=== PATIENT | male | born 1950 | race Caucasian/White ===

== ENCOUNTER 2020-10-23 07:55 | Outpatient (REF) | payer MEDICARE, SELFPAY ==
[2020-10-23 11:48] LABS: Alanine Aminotransferase 49 U/L (0-40); Albumin Level 4.2 g/dL (3.5-5.0); Alkaline Phosphatase 51 U/L (39-117); Anion Gap 14 (12-20); Aspartate Amino Transferase 38 U/L (5-37); Bilirubin Total 0.7 mg/dL (0.0-1.0); Blood Urea Nitrogen 24 mg/dL (9-16); Calcium 8.5 mg/dL (8.4-10.2); Carbon Dioxide 29 mmol/L (22-29); Chloride 97 mmol/L (96-108); Cholesterol 170 mg/dL; Estimated Glomerular Filt Rate > 60; Glucose Fasting 93 mg/dL (60-99); HDL Cholesterol 50 mg/dL; LDL Cholesterol Calculated 90 mg/dl; Potassium 3.2 mmol/L (3.3-5.1); Sodium 137 mmol/L (135-145); Total Protein 6.8 g/dL (6.5-8.0); Triglycerides 150 mg/dL
== END 2020-10-23 07:56 | disposition home or self-care (01) ==
LOC: HO.HMGCLDS 07:55
PROVIDERS: PCP Nurse Practitioner Family; Visit Provider Nurse Practitioner Family
DX: I10 Essential (primary) hypertension (principal)
CPT/HCPCS: 36415; 80053; 80061; 84443

== ENCOUNTER 2020-10-26 12:17 | Outpatient (REF) | payer MEDICARE, SELFPAY ==
[2020-10-26 14:25] LABS: Anion Gap 12 (12-20); Carbon Dioxide 32 mmol/L (22-29); Chloride 99 mmol/L (96-108); Potassium 3.5 mmol/L (3.3-5.1); Sodium 139 mmol/L (135-145)
[2020-10-27 03:53] LABS: HBc Num1 0.07 S/CO (0.00-0.79); HBsAGNum1 0.21 S/CO (0.00-0.99); Hepatitis B Core Antibody Nonreactive (Nonreactive); Hepatitis B Surface Antigen Negative (Negative); ~Hepatitis B Surface Antibody NONREACTIVE (Nonreactive)
[2020-10-27 04:00] LABS: ~HepC Num1 0.46 S/CO (0.00-0.79); ~Hepatitis C Antibody Nonreactive (Nonreactive)
[2020-10-28 08:00] LABS: ~Hepatitis A Antibody IgM Nonreactive (Nonreactive)
== END 2020-10-26 12:18 | disposition home or self-care (01) ==
LOC: HO.HMGCLDS 12:17
PROVIDERS: PCP Nurse Practitioner Family; Visit Provider Nurse Practitioner Family
DX: E87.5 Hyperkalemia (principal); R74.8 Abnormal levels of other serum enzymes
CPT/HCPCS: 36415; 80051; 86704; 86706; 86709; 86803; 87340

== ENCOUNTER 2020-11-02 08:18 | Outpatient (REF) | payer MEDICARE, SELFPAY ==
--- NOTE | ~2020-11-02 | US_ITS ---
EXAMINATION: US ABDOMEN COMPLETE CLINICAL INFORMATION: Abnormal levels of other serum enzymes. COMPARISON: None TECHNIQUE: Real-time imaging of the abdominal viscera. FINDINGS: PANCREAS: Normal. ABDOMINAL AORTA: The upper abdominal aorta is not well visualized due to bowel gas. The mid and distal segments are normal in caliber. INFERIOR VENA CAVA: Visualized portions are normal. LIVER: Liver echotexture is increased. The liver is normal in size. The liver contour is normal. No focal hepatic lesion. There is no intrahepatic biliary duct dilatation seen. GALLBLADDER: Normal. The gallbladder is physiologically distended without evidence of stones, sludge, polyps, wall thickening or pericholecystic fluid. COMMON BILE DUCT: Normal in caliber measuring 0.5 cm in diameter. RIGHT KIDNEY: Normal. No hydronephrosis. No renal calculi or focal parenchymal lesions. The kidney measures 12.5 cm in maximum dimension. LEFT KIDNEY: Normal. No hydronephrosis. No renal calculi or focal parenchymal lesions. The kidney measures 12.9 cm in maximum dimension. SPLEEN: Normal. The spleen measures 12.8 cm in maximum dimension. FREE FLUID: None. US/US abdomen complete IMPRESSION: Echogenic liver probably representing fatty infiltration. Limited visualization of the upper abdominal aorta.
== END 2020-11-02 08:19 | disposition home or self-care (01) ==
LOC: HO.US 08:18
PROVIDERS: PCP Internal Medicine; Visit Provider Nurse Practitioner Family
DX: R74.8 Abnormal levels of other serum enzymes (principal)
CPT/HCPCS: 76700

== ENCOUNTER → 2020-12-02 10:25 | Outpatient (REF) | payer MEDICARE, SELFPAY ==
--- NOTE | 2020-12-02 10:28 | CA_ITS ---
Transthoracic Echocardiogram Patient (Last, First, Middle): Neymar Paulino M Gender: Male Date of : 1950 Age: 70 Procedure Date: 12/02/2020 Procedure Type: Transthoracic Echocardiogram Location: OP Height: 187.96 cm Weight: 106.6 kg BSA: 2.33 m2 Heart Rate: bpm BP: 149 / 88 mmHg Research And Development Manager: MIREYA Referring MD: Presley Garcia [facility] Central Supply Technician: Saud Cox MD Symptoms: R01.1 - Cardiac murmur, unspecified Study Quality: Good ECG Rhythm: Sinus Conclusions: - 1. Normal LV systolic function with grade 1 diastolic dysfunction 2. Mildly dilated ascending aorta with mild fibrocalcific aortic valve changes noted 3. Normal cardiac valvular Doppler 4. Normal RV systolic pressure 5. No pericardial effusion Findings Left Ventricle Normal left ventricular size, thickness, and systolic function. The visually estimated ejection fraction is between 60-65%. Spectral Doppler is indicative of an impaired relaxation filling pattern. E/E prime ratio is <8, consistent with normal filling pressures. Evidence suggests grade I (mild) diastolic dysfunction. Right Ventricle Normal right ventricular cavity size and systolic function. Atria Both atria are normal in size. Interatrial shunt cannot be excluded. Aortic Valve There is mild calcification of the aortic valve. There is mild thickening of the aortic valve. There is no aortic valve stenosis. There is no aortic valve regurgitation. Mitral Valve Normal mitral valve structure and function. There is trace mitral valve regurgitation. There is no mitral valve stenosis. Pulmonic Valve The pulmonic valve was not well visualized. There is trace pulmonic valve regurgitation. Tricuspid Valve Likely normal tricuspid valve structure and function. The right ventricular systolic pressure is normal. The right ventricular systolic pressure is 26 mmHg. Normal right atrial pressure. There is no evidence of pulmonary hypertension. Great Vessels The pulmonary artery was not well visualized. There is mild dilatation of the ascending aorta measuring 4.10 cm. Venous The inferior vena cava is normal in size and collapses greater than 50% with inspiration. Pericardium/Pleural There is no evidence of pericardial effusion. Prior Study Comparison No prior study available for comparison. Measurements 2D Linear Measurements IVSd: 0.99 0.6-0.9/0.6-1.0 cm LVIDd: 5.36 3.9-5.3/4.2-5.9 cm LVIDd Index: 2.30 2.4-3.2/2.2-3.1 cm/m2 LVIDs: 3.41 2.0-3.6 cm LVPWd: 1.02 0.7-1.1 cm Ao Root: 3.40 2.1-3.5 cm LA Diam: 3.30 2.7-3.8/3.0-4.0 cm LAIDs Index: 1.42 1.5-2.3 cm/m2 LV Mass: 255.84 67-162/88-224 g LV Mass Index: 109.80 43-95/49-115 g/m2 LVOT Diam: 2.50 3.0+(-)1.3 cm 2D Systolic Function EF 4C: 67.30 >55% EF 2C: 60.90 >55% EF BiP: 64.70 >55% Mitral Valve MV Pk E: 0.53 MV PK A: 0.66 MV Decel Time: 151.00 E/A: 0.80 E'Lateral: 7.18 E'Medial: 4.35 E/E' Med: 12.10 E/E' Lat: 7.30 PHT: 44.00 MVA PHT: 5.00 Decel Bol[place]ar: 3.48 Aortic Valve AoV Pk Jose: 1.14 AoV Pk Grad: 5.00 LVOT LVOT Pk Jose: 0.86 LVOT Mn Jose: 0.59 LVOT VTI: 0.17 LVOT Pk Grad: 3.00 LVOT Mn Grad: 2.00 LVOT Diam: 2.50 LVOT Area: 4.91 Diastolic Function MV Pk E: 0.53 MV Pk A: 0.66 E/A: 0.80 E'Medial: 4.35 E/E' Med: 12.10 E' Laterial: 7.18 E/E' Lat: 7.30 Tricuspid Valve TR Pk Jose: 2.39 TR Pk Grad: 23.00 RA Press: 3.00 RVSP: 26.00 Great Vessels Aorta Ao Root-2D: 3.40 2.0-3.7 cm Ao Asc: 4.10 2.1-3.4 cm Ao Arch: 2.90 Updated in Other Vendor System with Status of Final Saud Cox MD electronically signed on 12/02/2020 6:22:14 PM with status of Final
== END ==
LOC: HO.CARD 10:25
PROVIDERS: PCP Nurse Practitioner Family; Visit Provider Nurse Practitioner Family
DX: R01.1 Cardiac murmur, unspecified (principal)
CPT/HCPCS: 93306

== ENCOUNTER 2021-09-17 09:08 | Outpatient (REF) | payer MEDICARE, SELFPAY ==
[2021-09-17 12:42] LABS: Appearance Urine CLEAR; Color Urine YELLOW; Glucose Urine UA NEG (NEG); Leukocyte Esterase Urine NEG (NEG); Nitrite Urine NEG (NEG); Urine Blood NEG (NEG); Urine Ketones NEG (NEG); Urine Protein NEG (NEG-TRACE)
[2021-09-17 12:45] LABS: Alanine Aminotransferase 54 U/L (0-40); Albumin Level 4.5 g/dL (3.5-5.0); Alkaline Phosphatase 56 U/L (39-117); Anion Gap 13 (12-20); Aspartate Amino Transferase 42 U/L (5-37); Bilirubin Total 0.7 mg/dL (0.0-1.0); Blood Urea Nitrogen 21 mg/dL (9-16); Calcium 9.7 mg/dL (8.4-10.2); Carbon Dioxide 29 mmol/L (22-29); Chloride 102 mmol/L (96-108); Cholesterol 198 mg/dL; Estimated Glomerular Filt Rate > 60; Glucose Fasting 101 mg/dL (60-99); HDL Cholesterol 59 mg/dL; LDL Cholesterol Calculated 114 mg/dl; Potassium 4.5 mmol/L (3.3-5.1); Sodium 139 mmol/L (135-145); Total Protein 6.9 g/dL (6.5-8.0); Triglycerides 126 mg/dL
== END 2021-09-17 09:09 | disposition home or self-care (01) ==
LOC: HO.HMGCLDS 09:08
PROVIDERS: PCP Nurse Practitioner Family; Visit Provider Nurse Practitioner Family
DX: I10 Essential (primary) hypertension (principal)
CPT/HCPCS: 36415; 80053; 80061; 81003; 84443

== ENCOUNTER 2021-11-29 07:20 | Outpatient (REF) | payer MEDICARE, SELFPAY ==
[2021-11-29 12:30] LABS: Alanine Aminotransferase 50 U/L (0-40); Albumin Level 4.3 g/dL (3.5-5.0); Alkaline Phosphatase 68 U/L (39-117); Anion Gap 15 (12-20); Aspartate Amino Transferase 35 U/L (5-37); Bilirubin Total 0.2 mg/dL (0.0-1.0); Blood Urea Nitrogen 13 mg/dL (9-16); Calcium 9.6 mg/dL (8.4-10.2); Carbon Dioxide 28 mmol/L (22-29); Chloride 101 mmol/L (96-108); Cholesterol 170 mg/dL; Estimated Glomerular Filt Rate > 60; Glucose Fasting 104 mg/dL (60-99); HDL Cholesterol 57 mg/dL; LDL Cholesterol Calculated 88 mg/dl; Potassium 4.3 mmol/L (3.3-5.1); Sodium 140 mmol/L (135-145); Total Protein 7.2 g/dL (6.5-8.0); Triglycerides 125 mg/dL
== END 2021-11-29 07:21 | disposition home or self-care (01) ==
LOC: HO.HMGCLDS 07:20
PROVIDERS: Visit Provider Nurse Practitioner Family
DX: R74.8 Abnormal levels of other serum enzymes (principal)
CPT/HCPCS: 36415; 80053; 80061

== ENCOUNTER 2022-06-27 07:18 | Outpatient (REF) | payer MEDICARE, SELFPAY ==
[2022-06-27 11:24] LABS: Appearance Urine Clear; Color Urine Yellow; Glucose Urine UA Negative (Negative); Leukocyte Esterase Urine Negative (Negative); Nitrite Urine Negative (Negative); PH 5.5 (5.0-9.0); Urine Blood Negative (Negative); Urine Ketones Negative (Negative); Urine Protein Negative (Neg-Trace)
[2022-06-27 11:48] LABS: Alanine Aminotransferase 48 U/L (0-40); Albumin Level 4.4 g/dL (3.5-5.0); Alkaline Phosphatase 54 U/L (39-117); Anion Gap 16 (12-20); Aspartate Amino Transferase 41 U/L (5-37); Bilirubin Total 0.5 mg/dL (0.0-1.0); Blood Urea Nitrogen 20 mg/dL (9-16); Calcium 9.1 mg/dL (8.4-10.2); Carbon Dioxide 26 mmol/L (22-29); Chloride 105 mmol/L (96-108); Cholesterol 139 mg/dL; Estimated Glomerular Filt Rate > 60; Glucose Fasting 99 mg/dL (60-99); HDL Cholesterol 63 mg/dL; LDL Cholesterol Calculated 55 mg/dl; Potassium 3.7 mmol/L (3.3-5.1); Sodium 143 mmol/L (135-145); Total Protein 6.8 g/dL (6.5-8.0); Triglycerides 109 mg/dL
[2022-06-27 11:57] LABS: TSH reflex Free T4 3.22 uIU/mL (0.32-4.0)
== END 2022-06-27 07:19 | disposition home or self-care (01) ==
LOC: HO.HMGCLDS 07:18
PROVIDERS: PCP Nurse Practitioner Family; Visit Provider Nurse Practitioner Family
DX: I10 Essential (primary) hypertension (principal)
CPT/HCPCS: 36415; 80053; 80061; 81003; 84443

== ENCOUNTER 2023-01-04 07:16 | Outpatient (REF) | payer MEDICARE, SELFPAY ==
[2023-01-04 11:27] LABS: MANUAL DIFF FLAG NO
[2023-01-04 11:33] LABS: Appearance Urine Clear; Color Urine Yellow; Glucose Urine UA Negative (Negative); Leukocyte Esterase Urine Negative (Negative); Nitrite Urine Negative (Negative); PH 6.5 (5.0-9.0); Urine Blood Negative (Negative); Urine Ketones Negative (Negative); Urine Protein Negative (Neg-Trace)
[2023-01-04 11:37] LABS: Basophils Percent Auto 0.6 % (0-2); Eosinophils Absolute Auto 0.1 X10*3/uL (0.0-0.4); Eosinophils Percent Auto 2.3 % (0-4); Hematocrit 41.3 % (42.0-52.0); Hemoglobin 14.1 g/dl (14.0-18.0); Lymphocytes Absolute Auto 1.3 X10*3/uL (1.2-4.9); Lymphocytes Percent Auto 26.7 % (20-40); Mean Corpuscular HGB Conc 34.1 g/dl (31.0-36.0); Mean Corpuscular Hemoglobin 30.7 pg (27.0-33.0); Mean Corpuscular Volume 89.8 fL (80.0-98.0); Mean Platelet Volume 10.9 fL (9.4-12.4); Monocytes Absolute Auto 0.4 X10*3/uL (0.1-1.2); Monocytes Percent Auto 7.9 % (2-11); Neutrophils Percent Auto 62.5 % (45-73); Platelet Count 149 X10*3/uL (160-400); Red Cell Distribution Width 12.7 % (11.0-16.0); White Blood Count 4.8 X10*3/uL (4.8-10.8)
[2023-01-04 12:12] LABS: Alanine Aminotransferase 43 U/L (0-40); Albumin Level 4.5 g/dL (3.5-5.0); Alkaline Phosphatase 63 U/L (39-117); Anion Gap 12 (12-20); Aspartate Amino Transferase 36 U/L (5-37); Bilirubin Total 0.6 mg/dL (0.0-1.0); Blood Urea Nitrogen 20 mg/dL (9-16); Calcium 9.3 mg/dL (8.4-10.2); Carbon Dioxide 29 mmol/L (22-29); Chloride 103 mmol/L (96-108); Cholesterol 155 mg/dL; Estimated Glomerular Filt Rate > 60; Glucose Fasting 98 mg/dL (60-99); HDL Cholesterol 64 mg/dL; LDL Cholesterol Calculated 72 mg/dl; Potassium 3.6 mmol/L (3.3-5.1); Sodium 140 mmol/L (135-145); Total Protein 6.8 g/dL (6.5-8.0); Triglycerides 98 mg/dL
== END 2023-01-04 07:17 | disposition home or self-care (01) ==
LOC: HO.HMGCLDS 07:16
PROVIDERS: PCP Nurse Practitioner Family; Visit Provider Nurse Practitioner Family
DX: I10 Essential (primary) hypertension (principal); R74.8 Abnormal levels of other serum enzymes
CPT/HCPCS: 36415; 80053; 80061; 81003; 84443; 85025

== ENCOUNTER → 2023-01-09 13:57 | Outpatient (REF) | payer MEDICARE, SELFPAY ==
--- NOTE | 2023-01-09 14:02 | CA_ITS ---
Transthoracic Echocardiogram Patient (Last, First, Middle): Neymar Paulino M Gender: Male Date of : 1950 Age: 72 Procedure Date: 01/09/2023 Procedure Type: Transthoracic Echocardiogram Location: OP Height: 187.96 cm Weight: 104.33 kg BSA: 2.31 m2 Heart Rate: bpm BP: 134 / 82 mmHg Circuit Designer: Referring MD: Presley Garcia [facility] Symptoms: I77.810 - Thoracic aortic ectasia Study Quality: Fair ECG Rhythm: Sinus Conclusions: - The left ventricular systolic function is normal. The calculated ejection fraction is 62% by biplane method. - No obvious valvular pathology seen on this study. - There is mild dilatation of the ascending aorta measuring 4.10 cm. Findings Left Ventricle Normal left ventricular cavity size. There is mildly increased left ventricular wall thickness. The left ventricular systolic function is normal. The calculated ejection fraction is 62% by biplane method. There is no evidence of regional wall motion abnormalities. Diastolic function is normal for age. LV peak GLS -17.5%. Right Ventricle Normal right ventricular cavity size and systolic function. Atria Both atria are normal in size. Aortic Valve There is a normal trileaflet aortic valve. There is no aortic valve stenosis. There is no aortic valve regurgitation. Mitral Valve The mitral valve appears normal. There is no mitral valve regurgitation. There is no mitral valve stenosis. Pulmonic Valve The pulmonic valve is likely normal. Tricuspid Valve Normal tricuspid valve structure. There is trace tricuspid valve regurgitation. There is no evidence of pulmonary hypertension. Great Vessels The aortic arch is normal in size. There is mild dilatation of the ascending aorta measuring 4.10 cm. Venous The inferior vena cava is normal in size and collapses less than 50% with inspiration. Pericardium/Pleural There is no evidence of pericardial effusion. Prior Study Comparison No significant change compared to prior study dated: 12/02/2020. Recommendations, Care & Conclusions No obvious valvular pathology seen on this study. Measurements 2D Linear Measurements IVSd: 1.21 0.6-0.9/0.6-1.0 cm LVIDd: 4.01 3.9-5.3/4.2-5.9 cm LVIDd Index: 1.74 2.4-3.2/2.2-3.1 cm/m2 LVIDs: 2.76 2.0-3.6 cm LVPWd: 1.28 0.7-1.1 cm Ao Root: 3.90 2.1-3.5 cm LA Diam: 3.80 2.7-3.8/3.0-4.0 cm LAIDs Index: 1.65 1.5-2.3 cm/m2 LV Mass: 218.55 67-162/88-224 g LV Mass Index: 94.61 43-95/49-115 g/m2 LVOT Diam: 2.50 3.0+(-)1.3 cm 2D Systolic Function EF 4C: 64.10 >55% EF 2C: 58.20 >55% EF BiP: 62.00 >55% Mitral Valve MV Pk E: 0.62 MV PK A: 0.96 MV Decel Time: 271.00 E/A: 0.60 E'Lateral: 5.77 E'Medial: 5.33 E/E' Med: 11.60 E/E' Lat: 10.70 PHT: 79.00 MVA PHT: 2.78 Decel Stanton: 2.28 Aortic Valve AoV Pk Jose: 1.46 AoV Mn Ojse: 1.02 AoV VTI: 0.26 AoV Pk Grad: 9.00 Aov Mn Grad: 5.00 SHUBHAM Cont.VTI: 3.78 LVOT LVOT Pk Jose: 0.96 LVOT Mn Jose: 0.67 LVOT VTI: 0.20 LVOT Pk Grad: 4.00 LVOT Mn Grad: 2.00 LVOT Diam: 2.50 LVOT Area: 4.91 Diastolic Function MV Pk E: 0.62 MV Pk A: 0.96 E/A: 0.60 E'Medial: 5.33 E/E' Med: 11.60 E' Laterial: 5.77 E/E' Lat: 10.70 Right Ventricle TAPSE (mm): 23.00 TVS' Jose: 10.00 Tricuspid Valve RA Press: 3.00 Great Vessels Aorta Ao Root-2D: 3.90 2.0-3.7 cm Ao Asc: 4.10 2.1-3.4 cm Ao Arch: 3.10 Pulmonary Valve PV Pk Jose: 0.81 Peak PV Grad: 3.00 Updated in Other Vendor System with Status of Final Shahid Rasmussen MD electronically signed on 01/10/2023 9:40:12 AM with status of Final
== END ==
LOC: HO.CARD 13:57
PROVIDERS: Visit Provider Nurse Practitioner Family
DX: I77.810 Thoracic aortic ectasia (principal)
CPT/HCPCS: 93306; 93356

== ENCOUNTER 2023-10-16 14:17 | Outpatient (AMB) | payer MEDICARE, SELFPAY ==
[2023-10-16 14:40] VITALS: BP 148/86; PULSE 76; O2SAT 100; BMI 33.3
--- NOTE | 2023-10-16 14:40 | A.OFFPC_ITS ---
Vital Signs 10/16/23 14:40 Height 6 ft Weight 245 lb 8 oz BMI 33.3 BP 148/86 H Blood Pressure Location Rt brachial Position Sitting Pulse 76 Pulse Source Pulse Oximeter Pulse Oximetry (%) 100 Oxygen Delivery Method Room Air Intake Visit Reasons: 6 Month follow up Intake Note: 6 month follow for HTN Allergies No Known Allergies Allergy (Verified 10/16/23 14:43) Medication List - Last Reconciled 10/16/23 by DAMI Hurt amlodipine 10 mg PO DAILY 90 days atorvastatin 10 mg PO BEDTIME 90 days hydrochlorothiazide 25 mg PO QAM metoprolol succinate ER 12.5 mg (1/2 x 25 mg) PO DAILY 30 days multivitamin 1 tab PO DAILY Tobacco use date assessed: 10/16/23 Fall risk assessment: No Falls in past year Last assessed Fall Risk: 10/16/23 Dental Screening Dental Screen Date: 10/16/23 Did you have a dental visit in the last 12 months?: No Did you have a dental problem in the last 6 months where you did not have access to dental care?: No Was dental information given to patient?: No HPI 6 Month follow up HPI Details HTN: Blood pressure is managed with amlodipine 10mg and hydrochlorothiazide 25mg. Pt reports that his blood pressure at home has been in the 140s/80s. Will add metoprolol 12.5mg. Denies chest pain, shortness of br eath, headache, dizziness, and blurred vision. Pt is fair skinned with multipe freckles. Will refer to derm. [facility] Medical History (Updated 10/16/23 @ 14:53 by DAMI Hurt) Rectus diastasis Ascending aorta dilatation Surgical History History of repair of rotator cuff Quadriceps muscle rupture Family History Father No problems noted. 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 1. Little interest or pleasure in doing things: not at all 2. Feeling down, depressed, or hopeless: not at all 3. Trouble falling or staying asleep, or sleeping too much: not at all 4. Feeling tired or having little energy: not at all 5. Poor appetite or overeating: not at all 6. Feeling bad about yourself - or that you are a failure or have let yourself or your family down: not at all 7. Trouble concentrating on things, such as reading the newspaper or watching television: not at all 8. Moving or speaking so slowly that other people could have noticed. Or the opposite - being so fidgety or restless that you have been moving around a lot more than usual: not at all 9. Thoughts that you would be better off or of hurting yourself in some way: not at all Total score: 0 Source: Developed by Drs. Mulugeta Jacobo, Erika Hutson, Venkata Savage and colleagues, with an educational tony from [employer]. Thrive Questionnaire Date Thrive assessed: 10/16/23 I am a: Patient What is your living situation today?: I have a steady place to live Within the past 12 months, did the food you bought not last and you didn't have the money to get more?: Never true Within the past 12 months, did you worry whether your food would run out before you got money to buy more?: Never true Do you have trouble paying for medicines?: No Do you have trouble getting transportation to medical appointments?: No Do you have trouble paying your heating and electricity bill?: No Do you have trouble taking care of your child, family member or friend?: No Do you have trouble with day-to-day activities such as bathing, preparing meals, shopping, managing finances, etc.?: No Are you currently unemployed and looking for a job?: No Are you interested in more education?: No THRIVE Score: 0 AUDIT C Alcohol Use Questionnaire (AUDIT-C) 1. How often do you have a drink containing alcohol?: 2-4 times a month 2. How many drinks containing alcohol do you have on a typical day when you are drinking?: 1 or 2 3. How often do you have six or more drinks on one occasion?: Never Total Score: 2 SANJUANA-7 AMB Questionnaire SANJUANA-7 Date SANJUANA - 7 assessed: 10/16/23 Feeling nervous, anxious, or on edge: 0 = Not at all Not being able to stop or control worryin = Not at all Worrying too much about different things: 0 = Not at all Trouble relaxin = Not at all Being so restless that it is hard to sit still: 0 = Not at all Becoming easily annoyed or irritable: 0 = Not at all Feeling afraid as if something awful might happen: 0 = Not at all Total SANJUANA-7 score (0-4 normal; 5-9 mild; 10-14 moderate; 15-21 severe): 0 Source: Developed by Drs. Mulugeta Jacobo, Erika Hutson, Venkata Savage and colleagues, with an educational tony from [employer]. Review of Systems Const Reports as per HPI Physical exam (Primary Care) Vital Signs: Last Vital Signs Pulse 76 10/16/23 14:40 BP 148/86 H 10/16/23 14:40 Pulse Ox 100 10/16/23 14:40 Oxygen Delivery Method Room Air 10/16/23 14:40 BMI result Body Mass Index 33.3 Tobacco/Smoking Status: Tobacco use Status Tobacco use date assessed 10/16/23 10/16/23 14:46 Patient Tobacco Use Status Never used Tobacco 10/16/23 14:46 e-Cigarette/Vaping Use Never Used 10/16/23 14:46 PHQ-9: PHQ-9 Score PHQ-9: Total score 0 10/16/23 14:50 Thrive Assessment: Date of Thrive Assessment Date Thrive assessed 10/16/23 10/16/23 14:48 Const General: cooperative Nutritional Appearance: obese Orientation/consciousness: patient oriented x3 Resp Effort & Inspection: normal respiratory effort Auscultation: clear to auscultation bilaterally Cardio Rate: regular rate Rhythm: regular rhythm Heart sounds: S1 normal heart sound present, S2 normal heart sound present and Murmur heart sound present (faint) systolic Neuro General: patient oriented x3 Extrem Right lower extremity: no edema Left lower extremity: no edema Psych Appearance: grossly normal Mental Status: mental status grossly normal Speech and movement: Normal speech and movement present Affect: normal affect Attitude: cooperative Thought process: Normal thought process present Thought content: Normal thought content present Insight: Good insight present (Psych) Judgement: Good judgement present (Psych) Assessment and Plan Assessment & Plan (1) Skin lesions: Code(s): L98.9 - Disorder of the skin and subcutaneous tissue, unspecified Plan: Referred to derm (2) HTN (hypertension): Code(s): I10 - Essential (primary) hypertension Plan: Starting metoprolol 12.5mg Plan The patient agreed to the use of a medical billing and coding instructor for this encounter. Scribed for DAMI Jensen by Layne Pereira medical billing and coding instructor, on 10/16/2023 at 14:50 EST. Orders: Orders Comprehensive [place]. Panel Fast Today I10 - Essential (primary) hypertension TSH reflex Free T4 Today I10 - Essential (primary) hypertension UA CC w/rflx Micro + Cult Today I10 - Essential (primary) hypertension Lipid Panel Today I10 - Essential (primary) hypertension Complete Blood Count Auto Diff Today I10 - Essential (primary) hypertension Referrals Dermatology Referral L98.9 - Disorder of the skin and subcutaneous tissue, unspecified Medications: New metoprolol succinate ER 12.5 mg (1/2 x 25 mg) PO DAILY 30 days 15 tabs 3RF Coding Level of Care Code Est Pt Level 3 (56755) Diagnoses Skin lesions L98.9 HTN (hypertension) I10
== END 2023-10-16 15:03 | disposition home or self-care (01) ==
LOC: HO.HMGC 14:17
PROVIDERS: PCP Nurse Practitioner Family; Visit Provider Nurse Practitioner Family
DX: I10 Essential (primary) hypertension (principal); L98.9 Disorder of the skin and subcutaneous tissue, unspecified
CPT/HCPCS: 99213

== ENCOUNTER 2024-01-06 08:00 | Outpatient (REF) | payer MEDICARE, SELFPAY ==
[2024-01-06 11:57] LABS: MANUAL DIFF FLAG NO
[2024-01-06 12:01] LABS: Basophils Percent Auto 0.5 % (0-2); Eosinophils Absolute Auto 0.2 X10*3/uL (0.0-0.4); Eosinophils Percent Auto 2.7 % (0-4); Hematocrit 47.4 % (42.0-52.0); Hemoglobin 16.3 g/dl (14.0-18.0); Imm Gran Abs Auto 0.01 X10*3/uL (0.00-0.03); Imm Gran Pct Auto 0.2 % (0.0-0.4); Lymphocytes Absolute Auto 1.2 X10*3/uL (1.2-4.9); Lymphocytes Percent Auto 18.3 % (20-40); Mean Corpuscular HGB Conc 34.4 g/dl (31.0-36.0); Mean Corpuscular Hemoglobin 30.2 pg (27.0-33.0); Mean Corpuscular Volume 87.8 fL (80.0-98.0); Mean Platelet Volume 10.4 fL (9.4-12.4); Monocytes Absolute Auto 0.6 X10*3/uL (0.1-1.2); Monocytes Percent Auto 9.7 % (2-11); Neutrophils Absolute Auto 4.3 x10*3/uL (2.0-8.3); Neutrophils Percent Auto 68.6 % (45-73); Platelet Count 163 X10*3/uL (160-400); Red Cell Distribution Width 13.2 % (11.0-16.0); White Blood Count 6.3 X10*3/uL (4.8-10.8)
[2024-01-06 12:11] LABS: Appearance Urine Clear; Color Urine Yellow; Glucose Urine UA Negative (Negative); Leukocyte Esterase Urine Trace (Negative); Nitrite Urine Negative (Negative); UMIC TRIGGER UACC YES; Urine Blood Negative (Negative); Urine Ketones Trace mg/dL (Negative); Urine Protein Negative (Neg-Trace)
[2024-01-06 12:18] LABS: Bacteria Urine None Seen (None Seen); Hyaline Casts Urine 0-2 /LPF (0-2); RBC Urine 0-2 /HPF (0-2); Squamous Epithelial Cell Urine 0-2 /HPF (0-2); WBC Urine 0-5 /HPF (0-5)
[2024-01-06 12:31] LABS: Alanine Aminotransferase 46 U/L (0-40); Albumin Level 4.2 g/dL (3.5-5.0); Alkaline Phosphatase 55 U/L (39-117); Anion Gap 13 (12-20); Aspartate Amino Transferase 39 U/L (5-37); Bilirubin Total 0.5 mg/dL (0.0-1.0); Blood Urea Nitrogen 13 mg/dL (9-16); Calcium 9.1 mg/dL (8.4-10.2); Carbon Dioxide 27 mmol/L (22-29); Chloride 104 mmol/L (96-108); Cholesterol 119 mg/dL (<200); Estimated Glomerular Filt Rate > 60; Glucose Fasting 110 mg/dL (60-99); HDL Cholesterol 49 mg/dL (>40); LDL Cholesterol Calculated 55 mg/dL (<100); Potassium 3.5 mmol/L (3.3-5.1); Sodium 140 mmol/L (135-145); Total Protein 6.9 g/dL (6.5-8.0); Triglycerides 77 mg/dL (<150)
[2024-01-06 12:37] LABS: TSH reflex Free T4 2.87 uIU/mL (0.32-4.0)
== END 2024-01-06 08:01 | disposition home or self-care (01) ==
LOC: HO.HMGCLDS 08:00
PROVIDERS: PCP Nurse Practitioner Family; Visit Provider Nurse Practitioner Family
DX: I10 Essential (primary) hypertension (principal)
CPT/HCPCS: 36415; 80053; 80061; 81001; 84443; 85025

== ENCOUNTER 2024-02-07 13:53 | Outpatient (AMB) | payer MEDICARE, SELFPAY ==
[2024-02-07 13:55] VITALS: BP 162/82; PULSE 89; O2SAT 96
--- NOTE | 2024-02-07 13:55 | AM.OFFWIN_ITS ---
Intake Vital Signs 3 02/07/24 13:55 Height 6 ft BP 162/82 H Blood Pressure Location Rt brachial Position Sitting Pulse 89 Pulse Source Pulse Oximeter Pulse Oximetry (%) 96 Intake Visit Reasons: EP popped left shoulder , cant move Intake Note: pt is here for dislocation shoulder, unable to move Patient Tobacco Use Status: Never used Tobacco Allergies No Known Allergies Allergy (Verified 02/07/24 13:57) Do you need a note to return to daycare/school/sports/work: No HPI EP popped left shoulder , cant move 2 HPI0 Details This is a 73 year old male patient who presents today with left shoulder/upper arm pain. He states that about two weeks ago, he felt a slight strain in that area while he was working out. He rested it since then, however today he was doing some work in his yard and reach across his chest with his left arm and felt a small popping sensation. He subsequently had pain radiating down left deltoid and bicep, and weakness in that arm. He is in constant pain, and cannot move his left arm without lifting it with his right hand. He has some relief when left arm is lifted completely above his head, however he must hold it there. [facility] Medical History Hypogonadism in male Rectus diastasis Ascending aorta dilatation Surgical History History of repair of rotator cuff Quadriceps muscle rupture Family History Father No problems noted. 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 Cognitive needs: No Hearing needs: No Vision needs: No Review of Systems Const All systems reviewed & are unremarkable except as noted in HPI and below Physical Exam Vital Signs: Last Vital Signs Pulse 89 02/07/24 13:55 BP 162/82 H 02/07/24 13:55 Pulse Ox 96 02/07/24 13:55 Const General: cooperative and acute distress (left arm/shoulder pain) moderate HEENT Head: Yes normal to inspection and Yes normocephalic Neck Neck: Yes full ROM and Yes no lymphadenopathy Resp Effort & Inspection: normal respiratory effort Back/Spine/Pelvis Cervical Spine: normal cervical lordosis and cervical ROM normal Skin General skin exam: no rashes or lesions noted Neuro General: deep tendon reflexes 2+ bilaterally Cognition (Neuro): normal cognition Gait exam (Neuro): Normal gait present Extrem Left upper extremity: shoulder/upper arm Details: inspection abnormal, tenderness (no AC joint tenderness. Some mild deltoid tenderness distally) and abnormal ROM Details: held in an abnormal fashion Details: in ADduction and pain with active ROM Details: in ABduction, in extension and in flexion Shoulder/upper arm images: 2 1. pain Psych Appearance: grossly normal Mental Status: mental status grossly normal Speech and movement: Normal speech and movement present Assessment & Plan Assessment & Plan (1) Left shoulder pain: Code(s): M25.512 - Pain in left shoulder Qualifiers: Chronicity: acute Qualified Code(s): M25.512 - Pain in left shoulder Plan: XR obtained in the office today indicates OA however no fx or dislocation. Possible RTC pathology vs adhesive capsulitis. Patient needs ortho f/u. He has an appt. at [facility] on 02/25. He is going to call to see if he can get a sooner appt. Will request images be sent to [facility]. Patient fitted for shoulder immobilizer today in the office and felt some relief from this. He is in significant pain even at rest without movement. We discussed use of NSAIDs and Tylenol, and I am going to prescribe him a short course of pain medication to take for breakthrough pain when more conservative measures are ineffective. We reviewed risks, indications, use, possible side effects of this medication. Will also prescribe muscle relaxer for use at . Reviewed use, possible s/e of this. Advised ice application and gentle ROM as tolerated. (2) Weakness of left shoulder: Code(s): R29.898 - Other symptoms and signs involving the musculoskeletal system Plan: As above. Orders: Orders 2 XR shoulder LT min 2V 02/07/24 M25.512 - Pain in left shoulder Medications: New 2 cyclobenzaprine 10 mg PO BEDTIME PRN 7 tabs 0RF muscle spasm 7 days M25.512 - Pain in left shoulder tramadol Take up to twice a day as needed for severe pain. Do not take with Cyclobenzaprine. 50 mg PO BID PRN 14 tabs 0RF pain 7 days M25.512 - Pain in left shoulder Coding Level of Care Code Est Pt Level 4 (42931) Diagnoses Acute pain of left shoulder M25.512 Chronicity: acute Weakness of left shoulder R29.898
--- OUTSIDE RECORDS SUMMARY | 2024-02-07 18:14 | XMS_ITS | Patient Health Record ---
Author Organization 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 Name Role Phone Presley Kelly Primary Care Provider Unav ailable Ifrah Sifuentes Unavailable [phone] ALLERGIES No Known Allergies REASON FOR REFERRAL No Information MEDICATIONS Medication SIG (Take, Route, Frequency, Duration) Notes Start Date End Date Status amLODIPine Besylate 10 MG 1 tablet Active hydroCHLOROthiazide 12mg Active SOCIAL HISTORY Tobacco Use: Social History Observation Description Date Details (start date - stop date) Never Smoker NA - NA Sex Assigned At : Social History Observation Description Sex Assigned At Unknown Tobacco Use/Smoking Question Answer Notes Are you a: nonsmoker Alcohol Screen Question Answer Notes Did you have a drink containing alcohol in the p ast year? Yes Points 0 Interpretation Negative Tobacco use other than smoking: Question Answer Notes Are you an other tobacco user? No VITAL SIGNS Height 6'2 in 07/05/2023 Weight 225 lbs 07/05/2023 BMI 28.89 kg/m2 07/05/2023 Encounters Encounter Location Date Provider Diagnosis [facility] [place] [address] [place] [address] 06/21/2023 Ifrah Sifuentes [facility] [address] [place] [address] 07/05/2023 Ifrah Sifuentes Ingrown nail L60.0 ASSESSMENTS Encounter Date Diagnosis Assessment Notes Treatment Notes Treatment Clinical Notes 07/05/2023 Ingrown nail (ICD-10 - L60.0) PLAN OF TREATMENT No Information Insurance Providers Payer Name Payer Address Payer Phone Subscriber Number Group Number Insured Name Patient Relationship to Insured Coverage Start Date Coverage End Date [employer] [address] [place] [address] [id number] Neymar Paulino Self - patient is the insured MEDICAL (GENERAL) HISTORY Medical History History ICD Code High blood pressure Surgical History Surgery Date(Month/Year) rotator cuff tear repair 2007 [place] [id number]
== END 2024-02-07 15:09 | disposition home or self-care (01) ==
PROVIDERS: PCP Nurse Practitioner Family; Visit Provider Nurse Practitioner Family
DX: M25.512 Pain in left shoulder (principal); R29.898 Other symptoms and signs involving the musculoskeletal system
CPT/HCPCS: 99214

== ENCOUNTER 2024-02-07 14:06 | Outpatient (REF) | payer MEDICARE, SELFPAY ==
--- NOTE | ~2024-02-07 | XR_ITS ---
EXAMINATION: XR SHOULDER, LEFT CLINICAL INFORMATION: Left shoulder pain COMPARISON: Left shoulder x-ray on 12/12/2014 TECHNIQUE: AP external rotation, internal rotation, scapular Y views of the left shoulder. FINDINGS: BONES: Bony structures are intact. Ring osteophyte formation is seen in medial left humeral head. There is no focal bone destruction or periosteal reaction seen. JOINTS: Alignment of joints is normal. SOFT TISSUE: Soft tissue is normal. No radiopaque foreign body or abnormal air collection is seen. XR/XR shoulder LT min 2V IMPRESSION: 1. Persistent left glenohumeral joint osteoarthritis. 2. No fracture or dislocation or signs of osteomyelitis are found.
== END 2024-02-07 14:07 | disposition home or self-care (01) ==
LOC: HO.HMGCX 14:06
PROVIDERS: PCP Nurse Practitioner Family; Visit Provider Nurse Practitioner Family
DX: M25.512 Pain in left shoulder (principal)
CPT/HCPCS: 73030

== ENCOUNTER 2024-03-25 09:58 | Outpatient (AMB) | payer MEDICARE, SELFPAY ==
[2024-03-25 10:02] VITALS: BP 132/78; PULSE 76; O2SAT 94; BMI 32.6
--- NOTE | 2024-03-25 10:02 | A.OFFPC_ITS ---
Vital Signs 03/25/24 10:02 Height 6 ft Weight 240 lb 6 oz BMI 32.6 BP 132/78 Blood Pressure Location Lt brachial Position Sitting Pulse 76 Pulse Source Pulse Oximeter Pulse Oximetry (%) 94 Oxygen Delivery Method Room Air Intake Visit Reasons: 6 Month follow up Intake Note: Pt is here today for his 6 month follow up. Allergies No Known Allergies Allergy (Verified 03/25/24 12:42) Medication List - Last Reconciled 03/25/24 by DAMI Hurt amlodipine 10 mg PO DAILY 90 days atorvastatin 10 mg PO BEDTIME 90 days hydrochlorothiazide 25 mg PO QAM metoprolol succinate ER 12.5 mg (1/2 x 25 mg) PO DAILY multivitamin 1 tab PO DAILY Tobacco use date assessed: 03/25/24 Fall risk assessment: No Falls in past year Last assessed Fall Risk: 03/25/24 Dental Screening Dental Screen Date: 03/25/24 Did you have a dental visit in the last 12 months?: No Did you have a dental problem in the last 6 months where you did not have access to dental care?: No Was dental information given to patient?: No HPI 6 Month follow up HPI Details HTN: Blood pressure is stable, managed with amlodipine 10mg, hydrochlorothiazide 25mg, and metoprolol 12.5mg. Pt checks his blood pressure intermittently at home. Denies chest pain, shortness of breath, headache, dizziness, and blurred vision. [facility] Medical History Hypogonadism in male Rectus diastasis Ascending aorta dilatation Surgical History History of repair of rotator cuff Quadriceps muscle rupture Family History Father No problems noted. 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 How often do you have a drink containing alcohol?: 2-4 times a month 2. How many drinks containing alcohol do you have on a typical day when you are drinking?: 1 or 2 3. How often do you have six or more drinks on one occasion?: Never Total Score: 2 Score Reviewed/Action Taken: Yes SANJUANA-7 AMB Questionnaire SANJUANA-7 Date SANJUANA - 7 assessed: 10/16/23 Source: Developed by Drs. uMlugeta Jacobo, Erika Hutson, Venkata Savage and colleagues, with an educational tony from [employer]. Review of Systems Const Reports as per HPI Physical exam (Primary Care) Vital Signs: Last Vital Signs Pulse 76 03/25/24 10:02 BP 132/78 03/25/24 10:02 Pulse Ox 94 03/25/24 10:02 Oxygen Delivery Method Room Air 03/25/24 10:02 BMI result Body Mass Index 32.6 Tobacco/Smoking Status: Tobacco use Status Tobacco use date assessed 03/25/24 03/25/24 10:05 Patient Tobacco Use Status Never used Tobacco 03/25/24 10:05 e-Cigarette/Vaping Use Never Used 03/25/24 10:05 Thrive Assessment: Date of Thrive Assessment Date Thrive assessed 10/16/23 03/25/24 10:05 Const General: cooperative Orientation/consciousness: patient oriented x3 Resp Effort & Inspection: normal respiratory effort Auscultation: clear to auscultation bilaterally Cardio Rate: regular rate Rhythm: regular rhythm Heart sounds: S1 normal heart sound present and S2 normal heart sound present Neuro General: patient oriented x3 Extrem Right lower extremity: no edema Left lower extremity: no edema Psych Appearance: grossly normal Mental Status: mental status grossly normal Speech and movement: Normal speech and movement present Affect: normal affect Attitude: cooperative Thought process: Normal thought process present Thought content: Normal thought content present Insight: Good insight present (Psych) Judgement: Good judgement present (Psych) Assessment and Plan Assessment & Plan (1) HTN (hypertension): Code(s): I10 - Essential (primary) hypertension Plan: Stable, labs ordered Plan The patient agreed to the use of a medical detail representative for this encounter. Scribed for Presley Garcia, SYSTEMS DEVELOPER-BC by Layne Pereira, medical detail representative, on 03/25/2024 at 10:15 EST. Orders: Orders Complete Blood Count Auto Diff Today I10 - Essential (primary) hypertension TSH reflex Free T4 Today I10 - Essential (primary) hypertension UA CC w/rflx Micro + Cult Today I10 - Essential (primary) hypertension Lipid Panel Today I10 - Essential (primary) hypertension Comprehensive [place]. Panel Fast Today I10 - Essential (primary) hypertension Coding Level of Care Code Est Pt Level 3 (78266) Diagnoses HTN (hypertension) I10
== END 2024-03-25 10:43 | disposition home or self-care (01) ==
PROVIDERS: PCP Nurse Practitioner Family; Visit Provider Nurse Practitioner Family
DX: I10 Essential (primary) hypertension (principal)
CPT/HCPCS: 99213

== ENCOUNTER 2024-06-05 07:32 | Outpatient (REF) | payer MEDICARE, SELFPAY ==
[2024-06-05 10:17] LABS: MANUAL DIFF FLAG NO
[2024-06-05 10:27] LABS: Basophils Percent Auto 0.8 % (0-2); Eosinophils Absolute Auto 0.1 X10*3/uL (0.0-0.4); Eosinophils Percent Auto 1.9 % (0-4); Hematocrit 50.4 % (42.0-52.0); Hemoglobin 17.4 g/dl (14.0-18.0); Imm Gran Abs Auto 0.01 X10*3/uL (0.00-0.03); Imm Gran Pct Auto 0.2 % (0.0-0.4); Lymphocytes Absolute Auto 1.2 X10*3/uL (1.2-4.9); Lymphocytes Percent Auto 22.6 % (20-40); Mean Corpuscular HGB Conc 34.5 g/dl (31.0-36.0); Mean Corpuscular Volume 89.8 fL (80.0-98.0); Mean Platelet Volume 10.4 fL (9.4-12.4); Monocytes Absolute Auto 0.6 X10*3/uL (0.1-1.2); Monocytes Percent Auto 10.6 % (2-11); Neutrophils Absolute Auto 3.4 x10*3/uL (2.0-8.3); Neutrophils Percent Auto 63.9 % (45-73); Platelet Count 169 X10*3/uL (160-400); Red Blood Count 5.61 X10*6/uL (4.60-5.80); Red Cell Distribution Width 12.6 % (11.0-16.0); White Blood Count 5.3 X10*3/uL (4.8-10.8)
[2024-06-05 10:28] LABS: Appearance Urine Clear; Color Urine Yellow; Glucose Urine UA Negative (Negative); Leukocyte Esterase Urine Negative (Negative); Nitrite Urine Negative (Negative); PH 5.5 (5.0-9.0); Specific Gravity - Urine 1.015 (1.005-1.025); Urine Blood Negative (Negative); Urine Ketones Negative (Negative); Urine Protein Negative (Neg-Trace)
[2024-06-05 11:15] LABS: Alanine Aminotransferase 45 U/L (0-40); Albumin Level 4.4 g/dL (3.5-5.0); Alkaline Phosphatase 52 U/L (39-117); Anion Gap 11 (12-20); Aspartate Amino Transferase 40 U/L (5-37); Bilirubin Total 0.6 mg/dL (0.0-1.0); Blood Urea Nitrogen 11 mg/dL (9-16); Calcium 9.5 mg/dL (8.4-10.2); Carbon Dioxide 32 mmol/L (22-29); Chloride 102 mmol/L (96-108); Cholesterol 115 mg/dL (<200); Estimated Glomerular Filt Rate > 60; Glucose Fasting 92 mg/dL (60-99); HDL Cholesterol 54 mg/dL (>40); LDL Cholesterol Calculated 53 mg/dL (<100); Potassium 3.5 mmol/L (3.3-5.1); Sodium 141 mmol/L (135-145); TSH reflex Free T4 2.13 uIU/mL (0.32-4.0); Total Protein 7.1 g/dL (6.5-8.0); Triglycerides 43 mg/dL (<150)
== END 2024-06-05 07:33 | disposition home or self-care (01) ==
LOC: HO.HMGCLDS 07:32
PROVIDERS: PCP Nurse Practitioner Family; Visit Provider Nurse Practitioner Family
DX: I10 Essential (primary) hypertension (principal)
CPT/HCPCS: 36415; 80053; 80061; 81003; 84443; 85025

== ENCOUNTER 2024-09-20 10:25 | Outpatient (AMB) | payer MEDICARE, SELFPAY ==
--- NOTE | 2024-09-20 11:11 | MHC.OFFWIV ---
Intake Vital Signs 09/20/24 11:12 Weight 237 lb BP 150/90 H Blood Pressure Location Lt brachial Position Sitting Pulse 65 Pulse Source Pulse Oximeter Pulse Oximetry (%) 92 Oxygen Delivery Method Room Air Intake Visit Reasons: EP Pain & swollen RT knee Intake Note: Patient here for right knee swelling, redness and pain that has been present for a few days. Patient Tobacco Use Status: Never used Tobacco Allergies No Known Allergies Allergy (Verified 09/20/24 11:13) Do you need a note to return to daycare/school/sports/work: No HPI EP Pain & swollen RT knee HPI Details This is a 73-year-old male patient who presents to the walk-in clinic today with tenderness/redness on his right knee. This started about 4 days ago without inciting event. He does note a small scab on the front of his knee which has been there for couple of weeks. He does not recall a specific injury. Denies any history of joint surgery. States the skin of his knee feels very tight and tender, particularly when bending his knee. Denies fever or chills. [facility] Medical History Hypogonadism in male Rectus diastasis Ascending aorta dilatation Surgical History History of repair of rotator cuff Quadriceps muscle rupture Family History Father No problems noted. 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 Warm to touch. No effusion or joint enlargement noted. Normal cap refill and pedal pulses distally. Full ROM right knee, however tenderness at affected location with flexion. Small scab noted at lower aspect of ant. knee Psych Appearance: grossly normal Mental Status: mental status grossly normal Speech and movement: Normal speech and movement present Assessment & Plan Assessment & Plan (1) Cellulitis of right knee: Code(s): L03.115 - Cellulitis of right lower limb Plan: Presentation consistent with cellulitis. Will start on Cephalexin. We reviewed indications, use, possible side effects of this medication. Advised cool compresses to the area for comfort. Also may take Tylenol/Motrin as needed. He has an appointment with PCP Presley Garcia next Monday at which point this can be reassessed if needed. If he does not improve with treatment, x-ray of right knee may be indicated to rule out effusion. Patient verbalizes understanding and agrees to plan. Medications: New cephalexin Take one capsule 4 times a day for 7 days. 500 mg PO QID 7 days 28 caps 0RF L03.115 - Cellulitis of right lower limb Coding Level of Care Code Est Pt Level 4 (48024) Diagnoses Cellulitis of right knee L03.115
[2024-09-20 11:12] VITALS: BP 150/90; PULSE 65; O2SAT 92
--- OUTSIDE RECORDS SUMMARY | 2024-09-20 11:51 | XMS_ITS | Patient Health Record ---
Author Organization [facility] Address [address] [place] [address] Care Team Providers Care General Magistrate Name Role Phone Presley Kelly Primary Care Provider Unav Ifrah Villarreal Unavailable [phone] Allergies No Known Allergies Reason For Referral No Information Medications Medication SIG (Take, Route, Frequency, Duration) Notes Start Date End Date Status amLODIPine Besylate 10 MG 1 tablet Active hydroCHLOROthiazide 12mg Active Social History Tobacco Use: Social History Observation Description Date Details (start date - stop date) Never Smoker NA - NA Tobacco Use/Smoking Question Answer Notes Are you a: nonsmoker Alcohol Screen Question Answer Notes Did you have a drink containing alcohol in the p ast year? Yes Points 0 Interpretation Negative Tobacco use other than smoking: Question Answer Notes Are you an other tobacco user? No Plan Of Treatment No Information Insurance Providers Payer Name Payer Address Payer Phone Subscriber Number Group Number Insured Name Patient Relationship to Insured Coverage Start Date Coverage End Date Medicare National Govt Sv[employer] [address] [place] [address] [id number] Neymar Paulino Self - patient is the insured Medical (General) History Medical History History ICD Code High blood pressure Surgical History Surgery Date(Month/Year) [facility]
--- OUTSIDE RECORDS SUMMARY | 2024-09-20 11:51 | XMS_ITS ---
Author Organization [facility] Address [address] [place] [address] Care Team Providers Care Lapper Name Role Phone Presley Kelly Primary Care Provider Unav ailable Bear Ifrah Unavailable [phone] Allergies No Known Allergies REASON FOR VISIT PCP - 01/2023, Ingrown Nail Medications Medication SIG (Take, Route, Frequency, Duration) Notes Start Date End Date Status amLODIPine Besylate 10 MG 1 tablet Active hydroCHLOROthiazide 12mg Active Social History Tobacco Use: Social History Observation Description Date Details (start date - stop date) Never Smoker NA - NA Tobacco Use/Smoking Question Answer Notes Are you a: nonsmoker Alcohol Screen Question Answer Notes Did you have a drink contain ing alcohol in the past year? Yes How often did you have a dri nk containing alcohol in the past year? 2 to 4 times a month (2 points) Points 2 Interpretation Negative Tobacco use other than smoking: Question Answer Notes Are you an other tobacco user? No Vital Signs Height 6'2 in 07/05/2023 Weight 225 lbs 07/05/2023 BMI 28.89 kg/m2 07/05/2023 Encounters Encounter Location Date Provider Diagnosis [facility] [address] [place] [address] 07/05/2023 Ifrah Sifuentes Ingrown nail L60.0 Assessments Encounter Date Diagnosis (ICD Code) Assessment Notes Treatment Notes Treatment Clinical Notes Section Notes 07/05/2023 Ingrown nail (ICD-10 - L60.0) Plan Of Treatment Next Appt Details Follow Up: prn, Reason: Progress Notes * Neymar PAULINO MDOB:[birth year] (72 yo M)Acc No.[id number]:07/05/2023 Progress Notes Patient:?Neymar Paulino Provider:?Ifrah Sifuentes DPM :1950???Age:72 Y???Sex:Male Pascual e:07/05/2023 Address:[address] [place], [place] [id number] Pcp:DELTA Jensen Subjective: * Chief Complaints: * ???PCP - 01/2023Ingrown Nail * HPI: ???Ingrown toenail:?Location:?Great toe Right foot.?Duration:?several days.?Onset/Cause:?self nail treatment.?Course:?improved.?Treatments:?antibiotic ointment.? * ROS:?General/Constitutional:?Nausea?denies.?Vomiting?denies.?Hunger Thirst?denies.?Loss appetite?denies.?Chills?denies.?Fatigue?denies.?Fever?denies.?Night Sweats?denies.?Unexplained weight loss?denies.?Unexplained weight gain?denies.?HEENTM:?Dentures?denies.?Dizziness?denies.?Glasses/contacts?denies.?Retinopathy?de nies.?Blurred/double vision?denies.?TMJ?denies.?Discharge/drainage?denies.?Implants?denies.?Sore throat?denies.?Dental implants?denies.?Hard of hearing ?denies.?Difficulty chewing/swallowing/speaking?denies.?Nose bleeds?denies.?Sore mouth?denies.?Respiratory:?On Oxygen?denies.?Pneumonia/pleurisy?denies.?Bronchitis?denies.?Emphysema?denies.?C oughing?denies.?Cough blood?denies.?Shortness of breath?denies.?Wheezing?denies.?Cardiovascular:?Pacemaker?denies.?MVP?denies.?WPW?denies.?CHF?denies.?Heart attack?denies.?Septal defect?denies.?Rapid beat?denies.?Chest pain ?denies.?Atrial Fib.?denies.?Murmur/Palpitations?denies.?Gastrointestinal:?Hemorrhoids?denies.?Stomach/Abdominal pain?denies.?Dark blood stool?denies.?Irritable bowel ?denies.?Constipation?denies.?Diarrhea?denies.?Hematology:?Swelling?denies.?Clots?denies.?Varicose Veins?denies.?Bruising?denies.?Bleeding problem?denies.?Genitourinary:?Blood urine?denies.?Frequent/Painfu/urination/bladder control?denies.?Kidney stones?denies.?Infection (UTI)?denies.?Nephropathy?denies.?sex trans dis (STD)?denies.?Prostate?denies.?Musculoskeletal:?Hammertoes?denies.?Bunions?denies.?Back Pain?denies.?Muscle Cramps/ Resting?denies.?Muscle cramps / walking?denies.?Generalized aches and pains?denies.?Weakness?denies.?Integ.:?Vinson?denies.?Scars?denies.?Corns/calluses?denies.?Ingrown nails?admits.?Painful nails?denies.?Open Sores?denies.?Rashes?denies.?Neurologic:?Difficulty sleeping?denies.?Brain disorder?denies.?Numbness?denies.?Balance trouble?denies.?Confusion?denies.?Fainting/blackouts?denies.?Tingling?denies.?Tr emors?denies.? * Medical History:? * Surgical History:?rotator cu ff tear repair [id number] * Hospitalization/Major Diagno stic Procedure:?Denies Past Hospitalization * Family History:?Mother: dece ased, diagnosed with Unspecified essential hypertension, Other malignant neoplasm of unspecified site.?Father: .?Siblings: diagnosed with Unspecified essential hypertension.? * Social History:?Tobacco Use:?Tobacco Use/Smoking?Are you a:?nonsmoker ?Tobacco use other than smoking?Are you an other tobacco user??No ???Drugs/Alcohol:?Drugs?Have you used drugs other than those for medical reasons in the past 12 months??No ?Alcohol Screen?Did you have a drink containing alcohol in the past year??Yes ?How often did you have a drink containing alcohol in the past year??2 to 4 times a month (2 points) ?Points?2 ?Interpretation?Negative ???Miscellaneous:?Caffeine: yes, frequency:, 1-2 cups per day. ?Exercise: yes, golf. ?Marital status: . ?Occupation: [employer]. * Medications:?TakingamLODIPin e Besylate 10 MG Tablet 1 tablet hydroCHLOROthiazide , Notes: 12mgMedication List reviewed and reconciled with the patientTaking amLODIPine Besylate 10 MG Tablet 1 tablet Taking hydroCHLOROthiazide , Notes: 12mgMedication List reviewed and reconciled with the patient * Allergies:?N.K.D.A.yes[Aller gies Verified] Objective: * Vitals:?Ht:6'2 , Wt:225, BMI :28.89, Shoe size:11.5, Ht-cm: 187.96 cm, Wt-k.06 kg. * Examination: ???General Examination: ?GENERAL APPEARANCE:?Reveals a pleasant, alert, well-nourished, well- developed, well hydrated individual, who demonstrates proper attention to hygiene/body habitus, and is in no acute distress, Pt serves as own?historian for office visit today.?ORIENTED:?person, place, and time.?Neurological: ?SENSORY:?Neurological exam reveals intact sensorium, pain sensation normal, vibration sensation intact, pinprick sensation is normal in the lower extremities, Pt denies, anesthesia, burning, paresthesia, tingling, B/L.?DEEP TENDON REFLEXES:?Achilles, 2/4, B/L.?Vascular: ?DP PULSES:?3/4, B/L.?PT PULSES:?3/4, B/L.?CAPILLARY FILL TIME:?immediate, all digits, B/L.?SKIN TEMPERTURE GRADIENT OF THE LOWER EXTERMITIES:?warm to cool, proximal to distal, B/L.?HAIR GROWTH/TEXTURE/ELASTICITY/TURGOR:?normal, B/L.?PIGMENTATION:?normal, B/L.?EDEMA:?absent, B/L.?Dermatologic: ?SKIN FINDINGS:?Skin exam reveals normal texture, elasticity, and turgor. There are no masses. The interspaces are clear.?Orthopedic: ?MUSCLE STRENGTH:?5/5 all groups in a symmetrical fashion , B/L.?Ingrown Nail: ?INSPECTION:?Reveals minimal nail incurvation, NO pain on palpation, groove hypertrophy Medial nail border T5.? Assessment: * Assessment: 1.?Ingrown nail - L60.0 (Amy barreto), Acute problem, Uncomplicated (3)? Plan: * Treatment: * Procedure Codes:? * Preventive Medicine:? ??Counseling:?Discussion:?-03: Office or other outpatient visit for the evaluation and management of a new patient, which required a medically appropriate history and/or examination and LOW level of DECISION MAKING for: 1 STABLE ACUTE UNCOMPLICATED PROBLEM, 2 OR MORE MINOR PROBLEMS, OR 1 STABLE CHRONIC PROBLEM, THAT POSE(S) A LOW RISK FOR MORBIDITY/MORTALITY. The visit on the day of the encounter encompassed interpreting the data and educating the patient as to the nature of their condition, treatment options available according to their individual PMH, meds, allergies, and overall health/living conditions, as well as any potential risks or complications that may occur from a failure to adhere to, and participate in, the recommended course of therapy. The discussion included a complete verbal, and/or written explanation of the examination results, any x-rays taken, the proposed diagnosis, and outline of the treatment plan. A schedule for future care needs was also explained. The patient verbalized an understanding of the instructions at this time and agreed to be an active participant in their treatment. If the patient should think of any questions or concerns after the visit, I have encouraged the patient to call the office.?Abscess/Paraonychia/Ingrown Nails:?We discussed the possible etiologies (genetic, improper nailcare, shoegear, nail trauma) which may lead to ingrown nails and/or paronychial infections. We discussed and reviewed palliative/nonsurgical/deferring definitive treatment (vs) undergoing the treatment procedures of nail avulsion(s) or PNA, which may prevent recurrence and give more lasting results. The possible risks/complications such as worsened condition/delayed healing/nonhealing/failure/recurrence/infection, the potential benefits/advantages of decreased pain/deformity, as well as alterative treatment options including applying nail softening agents/nailgroove packing were discussed. No guarantees were given regarding any outcome for any procedure. The patient was educated in the length of time for the affected nail to regrow once completely healed from a nail avulsion procedure. Once the condition has completely healed, the patient was consulted on proper nailcare. Patient questions such as details of each procedure, varying time to heal, activity post procedure, and shoegear were discussed and the answers were verbally confirmed fully understood, slant back performed with good relief of pain, pt to monitor for any signs of infection, pt should soak in warm water and epsom salts and apply antibotic ointment, call with any issues.? * Follow Up:?prn * Images: * Sign off status: Completed true * Provider:Nakul Sifuentes, DPM Date:? Generated for Nick garcia/Mirna/Gonzalo on:?09/20/2024 11:50 AM EST History and Physical Notes * HPI (History of Present Illness) Category Sub-Category Detail Notes Category Not es Ingrown toenail Duration: several days Location: Great toe Right foot Treatments: antibiotic ointment Onset/Cause: self nail treatment Course: improved Examination Category Sub-Category Detail Notes Category Not es Ingrown Nail INSPECTION: Reveals minimal nail incurvation, NO pain on palpation, groove hypertrophy Medial nail border T5 Neurological SENSORY: Neurological exa m reveals intact sensorium, pain sensation normal, vibration sensation intact, pinprick sensation is normal in the lower extremities, Pt denies, anesthesia, burning, paresthesia, tingling, B/L DEEP TENDON REFLEXES: Achilles, 2/4, B/L Dermatologic SKIN FINDINGS: Skin exam reveal s normal texture, elasticity, and turgor. There are no masses. The interspaces are clear Orthopedic MUSCLE STRENGTH: 5/5 all groups in a symm etrical fashion , B/L General Examination GENERAL APPEARANCE: Reveals a pleasant, alert, well- nourished, well-developed, well hydrated individual, who demonstrates proper attention to hygiene/body habitus, and is in no acute distress, Pt serves as own historian for office visit today ORIENTED: person, place, and t deja Vascular DP PULSES (B): 3/4, B/L PT PULSES (B): 3/4, B/L CAPILLARY FILL TIME: immediate, all digi ts, B/L TEMPERTURE GRADIENT (C): warm to cool, p roximal to distal, B/L TROPHIC CONDITION-TEXTURE/ELASTICITY/TURGOR/HAIR GROWTH (B): normal, B/L EDEMA (C): absent, B/L PIGMENTATION: normal, B/L
--- OUTSIDE RECORDS SUMMARY | 2024-09-20 11:51 | XMS_ITS ---
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 Name Role Phone Presley Kelly Primary Care Provider Unav ailable Ifrah Sifuentes Unavailable [phone] REASON FOR VISIT keeping appt 07/05 Encounters Encounter Location Date Provider Diagnosis [facility] [address] [place] [address] 06/21/2023 Ifrah Sifuentes Plan Of Treatment No Information Progress Notes * Neymar PAULINO MDOB:[birth year] (73 yo M)Acc No.[id number]:06/21/2023 Progress Notes Patient:?Neymar PAULINO Provider:?Ifrah Sifuentes DPM :1950???Age:72 Y???Sex:Male Pascual e:06/21/2023 Address:[address] [place], [place] [id number] Pcp:DELTA Jensen Subjective: * Chief Complaints: * ???1. Keeping appt 07/05. * Medical History:? Objective: * Vitals:? Assessment: Plan: * Treatment: * Images: * The named appointment provid er may or may not be the originator of this progress note, and it is not deemed complete until electronically signed by the appointment provider. Sign off status: Pending * Provider:?Ifrah Sifuentes DPM Date:?12/2022 Generated for Nick garcia/Mirna/Gonzalo on:?09/20/2024 11:50 AM EST
== END 2024-09-20 11:42 | disposition home or self-care (01) ==
PROVIDERS: PCP Nurse Practitioner Family; Visit Provider Nurse Practitioner Family
DX: L03.115 Cellulitis of right lower limb (principal)

== ENCOUNTER → 2024-09-20 10:25 | Outpatient (BNVA) | payer MEDICARE, SELFPAY | PROVIDERS: PCP Nurse Practitioner Family | DX: L03.115 Cellulitis of right lower limb (principal) | CPT/HCPCS: 99212 ==

== ENCOUNTER 2024-09-24 10:02 | Outpatient (AMB) | payer MEDICARE, SELFPAY ==
--- NOTE | 2024-09-24 10:03 | MHC.PC.OV ---
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 Accompanied by: Self / Same As Patient Allergies No Known Allergies Allergy (Verified 09/24/24 10:17) Medication List - Last Reconciled 09/24/24 by LOS Hurt- amlodipine 10 mg PO DAILY 90 days atorvastatin 10 mg PO BEDTIME 90 days cephalexin 500 mg PO QID 7 days hydrochlorothiazide 25 mg PO QAM metoprolol succinate ER 12.5 mg (1/2 x 25 mg) PO DAILY multivitamin 1 tab PO DAILY Tobacco use date assessed: 09/24/24 Fall risk assessment: No Falls in past year Last assessed Fall Risk: 09/24/24 Dental Screening Dental Screen Date: 09/24/24 Did you have a dental visit in the last 12 months?: Yes Did you have a dental problem in the last 6 months where you did not have access to dental care?: No Was dental information given to patient?: Patient has dentist HPI 6 Month follow up HPI Details Chief Complaint Right knee redness and swelling. History of Present Illness The patient is a 73-year-old male presenting with a right knee infection. The condition began approximately four days ago, characterized by redness and swelling in the right knee. The patient reported having a scabbed lesion at the anterior aspect of the patella, suspected to be the entry point for bacteria. Treatment was initiated with cephalexin four days prior, resulting in reduced swelling and redness, with improved knee flexion, though swelling and redness still present. He denies symptoms such as fever, chills, drainage, nausea, vomiting, chest pain, shortness of breath, headache, or blurred vision. Hypertension has been adequately managed, with blood pressure currently stable on existing medications. Social History Health Maintenance Review of Systems Physical Exam General: Cooperative, healthy appearing, comfortable, no acute distress and well developed Orientation: Patient oriented x3 Limitations: Able to flex right knee but not at 100% Head: Normal to inspection Ears: Hearing grossly normal bilaterally Nose: Normal external nose present Face and sinus: Normal facial exam Eyes: Appearance normal, both eyes and all related structures Neck: Normal visual inspection and Yes full ROM Respiratory: Normal respiratory effort and able to speak in complete sentences. Clear to auscultation bilaterally Cardiovascular: Regular rate and rhythm. Normal S1 and S2 GI: Normal to inspection. Soft to palpation and nontender Skin: No rashes or lesions noted Neuro: Patient oriented x3 Extremities: Right knee is erythematous with faint tenderness to touch and warmth noted. Healed lesion on the center patella. Results Plan - Add Doxycycline for MRSA coverage for right knee infection. - Continue current antihypertensive medications as blood pressure remains stable. - Monitor for any worsening symptoms of the knee infection and advise immediate emergency care if such symptoms occur. - Plan to conduct laboratory tests in the near future for ongoing monitoring. Patient was informed and verbally consented to the use of an ambient scribe for clinic note documentation during this visit. Discussion Notes Patient Instructions - Begin Doxycycline as prescribed to further treat the right knee infection. - Continue taking all current blood pressure medications. - Monitor your knee for any worsening symptoms such as increased redness, swelling, or pain, and seek emergency care if they occur. - Schedule laboratory tests in the near future as discussed. - If symptoms do not improve within the next week to 10 days, contact us for a follow-up. [facility] Medical History Hypogonadism in male Rectus diastasis Ascending aorta dilatation Surgical History History of repair of rotator cuff Quadriceps muscle rupture Family History Father No problems noted. 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 1. Little interest or pleasure in doing things: not at all 2. Feeling down, depressed, or hopeless: not at all 3. Trouble falling or staying asleep, or sleeping too much: not at all 4. Feeling tired or having little energy: not at all 5. Poor appetite or overeating: not at all 6. Feeling bad about yourself - or that you are a failure or have let yourself or your family down: not at all 7. Trouble concentrating on things, such as reading the newspaper or watching television: not at all 8. Moving or speaking so slowly that other people could have noticed. Or the opposite - being so fidgety or restless that you have been moving around a lot more than usual: not at all 9. Thoughts that you would be better off or of hurting yourself in some way: not at all Total score: 0 Depression Screening Interpretation: Negative Depression Screening Done: Yes 18338 - PHQ-9 Billing: Yes Source: Developed by Drs. Mulugeta Jacobo, Erika Hutson, Venkata Savage and colleagues, with an educational tony from [employer]. Thrive Questionnaire Date Thrive assessed: 09/24/24 I am a: Patient What is your living situation today?: I have a steady place to live Within the past 12 months, did the food you bought not last and you didn't have the money to get more?: Never true Within the past 12 months, did you worry whether your food would run out before you got money to buy more?: Never true Do you have trouble paying for medicines?: No Do you have trouble getting transportation to medical appointments?: No Do you have trouble paying your heating and electricity bill?: No Do you have trouble taking care of your child, family member or friend?: No Do you have trouble with day-to-day activities such as bathing, preparing meals, shopping, managing finances, etc.?: No Are you currently unemployed and looking for a job?: No Are you interested in more education?: No Please select the resources that you would like help with: None Currently or been in a relationship where the following occur: No concerns reported THRIVE Score: 0 AUDIT C Alcohol Use Questionnaire (AUDIT-C) 1. How often do you have a drink containing alcohol?: 2-4 times a month 2. How many drinks containing alcohol do you have on a typical day when you are drinking?: 1 or 2 3. How often do you have six or more drinks on one occasion?: Less than monthly Total Score: 3 Score Reviewed/Action Taken: Yes SANJUANA-7 AMB Questionnaire SANJUANA-7 Date SANJUANA - 7 assessed: 09/24/24 Feeling nervous, anxious, or on edge: 0 = Not at all Not being able to stop or control worryin = Not at all Worrying too much about different things: 0 = Not at all Trouble relaxin = Not at all Being so restless that it is hard to sit still: 0 = Not at all Becoming easily annoyed or irritable: 0 = Not at all Feeling afraid as if something awful might happen: 0 = Not at all Total SANJUANA-7 score (0-4 normal; 5-9 mild; 10-14 moderate; 15-21 severe): 0 Source: Developed by Drs. Mulugeta Jacobo, Erika Hutson, Venkata Savage and colleagues, with an educational tony from [employer]. SANJUANA-7 Assessment Billing SANJUANA-7 Assessment Tool: SANJUANA-7 Assessment 33314 Physical exam (Primary Care) Tobacco/Smoking Status: Tobacco use Status Tobacco use date assessed 09/24/24 09/24/24 10:05 Patient Tobacco Use Status Never used Tobacco 09/24/24 10:05 e-Cigarette/Vaping Use Never Used 09/24/24 10:05 PHQ-9: PHQ-9 Score PHQ-9: Total score 0 09/24/24 10:05 Depression Screening Interpretation: Negative Thrive Assessment: Date of Thrive Assessment Date Thrive assessed 09/24/24 09/24/24 10:05 Currently or been in a relationship where the following occur: No concerns reported Coding Level of Care Code Est Pt Level 3 (41499) Diagnoses HTN (hypertension) I10 Ascending aorta dilatation I77.810 Right knee skin infection L08.9 Additional Codes SANJUANA-7 Assessment Billing - SANJUANA-7 Assessment Tool: SANJUANA-7 Assessment 33742 ([id number]) PHQ-9 - 42406 - PHQ-9 Billing: Yes ([id number]) Assessment & Plan Assessment & Plan (1) HTN (hypertension): Code(s): I10 - Essential (primary) hypertension Category: Medical (2) Ascending aorta dilatation: Code(s): I77.810 - Thoracic aortic ectasia Category: Medical Plan: repeat echo ordered (3) Right knee skin infection: Code(s): L08.9 - Local infection of the skin and subcutaneous tissue, unspecified Category: Medical Plan . Orders: Orders Comprehensive [place]. Panel Fast Today I10 - Essential (primary) hypertension CA echo transthoracic complete Today I77.810 - Thoracic aortic ectasia Pneumococcal 20 Immunization Today Z23 - Encounter for immunization TDaP Immunization Today Z23 - Encounter for immunization Complete Blood Count Auto Diff Today I10 - Essential (primary) hypertension TSH reflex Free T4 Today I10 - Essential (primary) hypertension UA CC w/rflx Micro + Cult Today I10 - Essential (primary) hypertension Lipid Panel Today I10 - Essential (primary) hypertension Medications: New Boostrix Tdap (diphth,pertus(acell),tetanus) 0.5 mL IM ONCE 0.5 mL 0RF NS Z23 - Encounter for immunization pneumoc 20-ashlee conj-dip cr(PF) 0.5 mL IM ONCE 0.5 mL 0RF Z23 - Encounter for immunization doxycycline hyclate 100 mg PO BID 10 days 20 tabs 0RF
[2024-09-24 10:04] VITALS: BP 130/80; PULSE 88; O2SAT 98; BMI 32.1
--- OUTSIDE RECORDS SUMMARY | 2024-09-24 10:31 | XMS_ITS | Patient Health Record ---
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
--- OUTSIDE RECORDS SUMMARY | 2024-09-24 10:31 | XMS_ITS ---
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 Name Role Phone Presley Kelly Primary Care Provider Unav ailable Ifrah Sifuentes Unavailable [phone] REASON FOR VISIT keeping appt 07/05 Encounters Encounter Location Date Provider Diagnosis [facility] [address] [place] [address] 06/21/2023 Ifrah Sifuentes Plan Of Treatment No Information Progress Notes * Neymar PAULINO MDOB:[birth year] (73 yo M)Acc No.[id number]:06/21/2023 Progress Notes Patient:?Neymar PAULINO Provider:?Ifrah Sifuentes DPM :1950???Age:72 Y???Sex:Male Pascual e:06/21/2023 Address:[address] [place], [place] [id number] Pcp:DELTA Jensen Subjective: * Chief Complaints: * [...] Sifuentes DPM Date:?12/2022 Generated for Nick garcia/Mirna/Gonzalo on:?09/24/2024 10:30 AM EST
== END 2024-09-24 10:46 | disposition home or self-care (01) ==
PROVIDERS: PCP Nurse Practitioner Family; Visit Provider Nurse Practitioner Family
DX: I10 Essential (primary) hypertension (principal); I77.810 Thoracic aortic ectasia; L08.9 Local infection of the skin and subcutaneous tissue, unspecified; Z23 Encounter for immunization

== ENCOUNTER → 2024-09-24 10:02 | Outpatient (BNVA) | payer MEDICARE, SELFPAY | PROVIDERS: PCP Nurse Practitioner Family; Visit Provider Nurse Practitioner Family | DX: Z23 Encounter for immunization (principal); I10 Essential (primary) hypertension; I77.810 Thoracic aortic ectasia; L08.9 Local infection of the skin and subcutaneous tissue, unspecified | CPT/HCPCS: 90471; 90677; 90715; 96127; 99212 ==

== ENCOUNTER → 2024-10-02 13:54 | Outpatient (REF) | payer MEDICARE, SELFPAY ==
--- NOTE | 2024-10-02 14:00 | CA_ITS ---
Transthoracic Echocardiogram Patient (Last, First, Middle): Neymar Paulino M Gender: Male Date of : 1950 Age: 73 Procedure Date: 10/02/2024 Procedure Type: Transthoracic Echocardiogram Location: OP Height: 182.88 cm Weight: 107.5 kg BSA: 2.29 m2 Heart Rate: bpm BP: 130 / 88 mmHg District Attorney: CHARLES White MD: Presley Garcia [facility]- Insurance And Benefits Clerk: Saud Cox MD Symptoms: I77.810 - Thoracic aortic ectasia Study Quality: Fair ECG Rhythm: Sinus Conclusions: - 1. Normal LV ejection fraction 55-60% with mild LVH with impaired relaxation filling pattern 2. Trivial aortic regurgitation 3. Mildly dilated ascending aorta at 4.2 cm 4. Normal RV systolic pressure 5. No gross pericardial effusion Findings Left Ventricle Normal left ventricular size and systolic function. There is mildly increased left ventricular wall thickness. The visually estimated ejection fraction is between 55-60%. Spectral Doppler is indicative of an impaired relaxation filling pattern. E/E prime ratio is between 8 and 15 consistent with indeterminate filling pressures. Right Ventricle Normal right ventricular cavity size and systolic function. Atria The left atrium is normal in size. Interatrial shunt cannot be excluded. The right atrium was not well visualized. Aortic Valve There is mild calcification of the aortic valve. There is mild thickening of the aortic valve. There is no aortic valve stenosis. There is trace (trivial) aortic valve regurgitation. Mitral Valve There is mild anterior and posterior mitral leaflet thickening. There is trace mitral valve regurgitation. There is no mitral valve stenosis. Pulmonic Valve The pulmonic valve was not well visualized. Tricuspid Valve Likely normal tricuspid valve structure and function. There is trace tricuspid valve regurgitation. The right ventricular systolic pressure is normal. The right ventricular systolic pressure is 22 mmHg. Normal right atrial pressure. There is no evidence of pulmonary hypertension. Great Vessels The pulmonary artery was not well visualized. There is mild dilatation of the ascending aorta measuring 4.20 cm. Small plaque is seen in the sino tubular ridge. Venous The inferior vena cava is normal in size and collapses greater than 50% with inspiration. Pericardium/Pleural There is no evidence of pericardial effusion. Prior Study Comparison No significant change compared to prior study dated: 01/09/2023. Measurements 2D Linear Measurements IVSd: 1.21 0.6-0.9/0.6-1.0 cm LVIDd: 4.56 3.9-5.3/4.2-5.9 cm LVIDd Index: 1.99 2.4-3.2/2.2-3.1 cm/m2 LVIDs: 3.62 2.0-3.6 cm LVPWd: 1.15 0.7-1.1 cm Ao Root: 4.10 2.1-3.5 cm LA Diam: 3.40 2.7-3.8/3.0-4.0 cm LAIDs Index: 1.48 1.5-2.3 cm/m2 LV Mass: 246.02 67-162/88-224 g LV Mass Index: 107.43 43-95/49-115 g/m2 LVOT Diam: 2.30 3.0+(-)1.3 cm Mitral Valve MV Pk E: 0.46 MV PK A: 0.80 MV Decel Time: 339.00 E/A: 0.60 E'Lateral: 7.72 E'Medial: 5.77 E/E' Med: 8.00 E/E' Lat: 6.00 PHT: 99.00 MVA PHT: 2.22 Decel [place]: 1.36 Aortic Valve AoV Pk Jose: 1.25 AoV Mn Jose: 0.85 AoV VTI: 0.22 AoV Pk Grad: 6.00 Aov Mn Grad: 3.00 [place] Cont.VTI: 2.95 LVOT LVOT Pk Jose: 0.84 LVOT Mn Jose: 0.60 LVOT VTI: 0.16 LVOT Pk Grad: 3.00 LVOT Mn Grad: 2.00 LVOT Diam: 2.30 LVOT Area: 4.15 Diastolic Function MV Pk E: 0.46 MV Pk A: 0.80 E/A: 0.60 E'Medial: 5.77 E/E' Med: 8.00 E' Laterial: 7.72 E/E' Lat: 6.00 Right Ventricle TAPSE (mm): 20.90 TVS' Jose: 11.10 Tricuspid Valve TR Pk Jose: 2.19 TR Pk Grad: 19.00 RA Press: 3.00 RVSP: 22.00 Great Vessels Aorta Ao Root-2D: 4.10 2.0-3.7 cm Ao Asc: 4.20 2.1-3.4 cm Ao Arch: 3.10 Updated in Other Vendor System with Status of Final Saud Cox MD electronically signed on 10/03/2024 12:41:05 PM with status of Final
== END ==
LOC: HO.CARD 13:54
PROVIDERS: PCP Nurse Practitioner Family; Visit Provider Nurse Practitioner Family
DX: I77.810 Thoracic aortic ectasia (principal)
CPT/HCPCS: 93306

== ENCOUNTER → 2024-10-02 14:00 | Outpatient (BNV) | payer MEDICARE, SELFPAY | PROVIDERS: PCP Nurse Practitioner Family; Visit Provider Internal Medicine Cardiovascular Disease | DX: I35.8 Other nonrheumatic aortic valve disorders (principal); I35.1 Nonrheumatic aortic (valve) insufficiency | CPT/HCPCS: 93306 ==

== ENCOUNTER 2024-10-04 09:05 | Outpatient (AMB) | payer MEDICARE, SELFPAY ==
--- NOTE | 2024-10-04 09:09 | AM.OFFWIN_ITS ---
Intake Vital Signs 10/04/24 09:10 Height 6 ft Weight 237 lb BMI 32.1 BP 126/78 Blood Pressure Location Lt brachial Position Sitting Pulse 81 Pulse Source Pulse Oximeter Pulse Oximetry (%) 98 Oxygen Delivery Method Room Air Intake Visit Reasons: EP-skin infection Intake Note: Pt is here today for a walk in visit follow up on skin infection. Patient Tobacco Use Status: Never used Tobacco Allergies No Known Allergies Allergy (Verified 10/04/24 09:12) HPI EP-skin infection HPI Details This is a 73-year-old male patient who returns to the walk-in clinic today with tenderness/redness on his right knee. He was seen here on 09/20 and started on Cephalexin for suspected cellulitis. He had a PCP visit on 09/24 and still had redness/pain on that right knee, and was started on Doxy x10 days. He completed course of abx yesterday and still has redness on anterior aspect of knee. 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 No specific injury however he does have a healed scab in that area. Denies any history of joint surgery. Denies fever or chills. [facility] Medical History Hypogonadism in male Rectus diastasis Ascending aorta dilatation Surgical History History of repair of rotator cuff Quadriceps muscle rupture Family History Father No problems noted. 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 Cognitive needs: No Hearing needs: No Vision needs: No Review of Systems Const All systems reviewed & are unremarkable except as noted in HPI and below Physical Exam Vital Signs: Last Vital Signs Pulse 81 10/04/24 09:10 BP 126/78 10/04/24 09:10 Pulse Ox 98 10/04/24 09:10 Oxygen Delivery Method Room Air 10/04/24 09:10 BMI result Body Mass Index 32.1 Const General: cooperative, healthy appearing and no acute distress HEENT Head: Yes normal to inspection Resp Effort & Inspection: normal respiratory effort Auscultation: clear to auscultation bilaterally Cardio Rate: regular rate Rhythm: regular rhythm Extrem Other: mild swelling and tenderness right anterior/medial aspect of knee. Warm to touch. No effusion or joint enlargement noted. Normal cap refill and pedal pulses distally. Full ROM right knee, however tenderness at affected location with flexion. Small scab noted at lower aspect of ant. knee Psych Appearance: grossly normal Mental Status: mental status grossly normal Speech and movement: Normal speech and movement present Assessment & Plan Assessment & Plan (1) Right anterior knee pain: Code(s): M25.561 - Pain in right knee Plan Patient has ongoing redness, mild tenderness, and mild pain with flexion on anterior right knee. He is weight bearing. I cannot palpate an effusion. He has now had course of both Cephalexin and Doxy without complete resolution of symptoms. XR knee: Mild degenerative changes medial and patellofemoral compartment. Enthesophytes along the inferior patella anterior tibial tuberosity. Moderate prepatellar soft tissue swelling question superficial bursitis or edema I called [facility] ortho and spoke with Yumi Miller PA-C who also reviewed the imaging. She does not feel he needs ortho evaluation and suggested prednisone as this could possibly be gout. I discussed this with patient and he is agreeable to trying a course of prednisone. We reviewed indications, use, possible side effects of this medication. If he still does not improve with treatment, he can return to see us or follow up with primary care provider. He verbalizes understanding of this and agrees to plan. Medications: New prednisone Take one tablet twice a day for 5 days. 20 mg PO BID 5 days 10 tabs 0RF M25.561 - Pain in right knee Coding Level of Care Code Est Pt Level 4 (69199) Diagnoses Right anterior knee pain M25.561
[2024-10-04 09:10] VITALS: BP 126/78; PULSE 81; O2SAT 98; BMI 32.1
== END 2024-10-04 10:35 | disposition home or self-care (01) ==
PROVIDERS: PCP Nurse Practitioner Family; Visit Provider Nurse Practitioner Family
DX: M25.561 Pain in right knee (principal)

== ENCOUNTER 2024-10-04 09:05 | Outpatient (REF) | payer MEDICARE, SELFPAY ==
--- NOTE | ~2024-10-04 | XR_ITS ---
EXAMINATION: XR KNEE, RIGHT CLINICAL INFORMATION: L08.9 - Local infection of the skin and subcutaneous tissue, unspecified COMPARISON: None available. TECHNIQUE: Four views of the right knee. FINDINGS: There is mild loss of medial and patellofemoral compartment joint space with inferior patellar spurring. There is moderate prepatellar soft tissue swelling. Also visualizes small discoid along the anterior tibial tuberosity. No joint effusion seen. No acute fracture or dislocation. XR/XR knee RT 4V IMPRESSION: Mild degenerative changes medial and patellofemoral compartment. Enthesophytes along the inferior patella anterior tibial tuberosity. Moderate prepatellar soft tissue swelling question superficial bursitis or edema Electronically signed by: Jesus Gaytan MD 10/04/2024 10:02 AM JULIETTE
== END 2024-10-04 09:06 | disposition home or self-care (01) ==
LOC: HO.HMGCX 09:05
PROVIDERS: PCP Nurse Practitioner Family; Visit Provider Nurse Practitioner Family
DX: M25.561 Pain in right knee (principal)
CPT/HCPCS: 73564; 99212

== ENCOUNTER → 2024-10-04 09:46 | Outpatient (BNV) | payer MEDICARE, SELFPAY | PROVIDERS: PCP Nurse Practitioner Family; Visit Provider Radiology Diagnostic Radiology | DX: M22.2X1 Patellofemoral disorders, right knee (principal); M76.891 Other specified enthesopathies of right lower limb, excluding foot | CPT/HCPCS: 73564 ==

== ENCOUNTER 2025-03-31 08:45 | Outpatient (AMB) | payer MEDICARE, SELFPAY ==
[2025-03-31 08:47] VITALS: BP 132/80; PULSE 76; O2SAT 97; BMI 31.1
--- NOTE | 2025-03-31 08:47 | AM.OFFVISMDC ---
Intake Vital Signs 03/31/25 08:47 Height 6 ft Weight 229 lb BMI 31.1 BP 132/80 Blood Pressure Location Lt brachial Position Sitting Pulse 76 Pulse Source Pulse Oximeter Pulse Oximetry (%) 97 Oxygen Delivery Method Room Air Intake Visit Reasons: ALINE G0439 Pediatrics Teacher Required: No Accompanied by: Self / Same As Patient Allergies No Known Allergies Allergy (Verified 03/31/25 09:27) Medication List - Last Reconciled 03/31/25 by DAMI Hurt amlodipine 10 mg PO DAILY 90 days atorvastatin 10 mg PO BEDTIME 90 days hydrochlorothiazide 25 mg PO QAM metoprolol succinate ER 12.5 mg (1/2 x 25 mg) PO DAILY multivitamin 1 tab PO DAILY Do you need a note to return to daycare/school/sports/work: No HPI ALINE G0439 HPI Details awv: ccc in scan pile, PPP in scan pile. due for repeat colon screen in may. encouraged to get labs drawn. Hx of dilated ascending aortoa, repeat echo in approx 6 months. 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 [facility] Medical History Hypogonadism in male Rectus diastasis Ascending aorta dilatation Surgical History History of repair of rotator cuff Quadriceps muscle rupture Family History Father No problems noted. 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 Cognitive needs: No Hearing needs: No Vision needs: No Questionnaire Medicare Wellness Checkup [age] What gender do you identify with?: male During the past 4 weeks, how much have you been bothered by emotional problems such as feeling anxious, depressed, irritable, sad or downhearted, and blue?: not at all During the past 4 weeks, has your physical & emotional health limited your social activities with family, friends, neighbors, or groups?: not at all During the past 4 weeks, how much bodily pain have you generally had?: very mild pain During the past 4 weeks, was someone available to help you if you needed & wanted help?: yes, as much as I wanted During the past 4 weeks, what was the hardest physical activity you could do for at least 2 minutes?: moderate Can you get to places out of walking distance without help? (For eg., can you travel alone on buses, taxis or drive your car?): Yes Can you go shopping for groceries or clothes without someone's help?: Yes Can you prepare your own meals?: Yes Can you do your housework without help?: Yes Because of any health problems, do you need the help of another person with your personal care needs such as eating, bathing, dressing or getting around the house?: No Can you handle your own money without help?: Yes During the past 4 weeks, how would you rate your health in general?: very good During the past 4 weeks how have things been going for you?: pretty well Are you having difficulties driving your car?: no Do you always fasten your seat belt when you are in a car?: yes, usually During past 4 weeks, have you been bothered by the following: never: Falling or dizzy when standing up, Trouble eating well?, Teeth or denture problems?, Problems using the telephone? and Tiredness or fatigue? and sometimes: Sexual problems? Have you fallen 2 or more times in the past year?: No Are you afraid of falling?: No Are you a smoker?: no During the past 4 weeks, how many drinks of wine, beer, or other alcoholic beverages did you have?: 2-5 drinks per week Do you exercise for about 20 minutes 3 or more times a week?: yes, most of the time Have you been given information to help with the following?: no: Hazards in your house that might hurt you? and no: Keeping track of your medications? How often do you have trouble taking medicines the way you have been told to take them?: I always take medicine as prescribed How confident are you that you can control & manage most of your health problems?: very confident What is your race?: White Mini Mental State Exam (MMSE) Orientation What is the (year) (season) (date) (day) (month)?: year, season, date, day and month Where are we (state) (county) (town or city) (hospital) (floor)?: county, town or city and hospital/clinic Registration Name of 3 unrelated objects clearly and slowly, then ask patient to repeat all 3 of them. (1st repeat determines score. Make sure they can repeat all three): object 1, object 2 and object 3 Attention & Calculation (CHOOSE ONE) Spell WORLD backwards (DLROW): 5 letters Recall Ask patient to repeat the 3 items from question #3.: object 1, object 2 and object 3 Language Show patient a wristwatch & ask what it is. Repeat for pencil.: watch and pencil Ask the patient to repeat the phrase 'No ifs, ands, or buts' after you.: correct Ask the patient to 'take a piece of paper with their right hand' 'fold paper in half' 'place paper on floor': take paper in right hand, fold paper in half and place paper on floor Print the sentence 'CLOSE YOUR EYES' on a piece. If patient actually closes eyes then score.: followed written direction Give patient a blank piece of paper & ask to write a sentence. Score if it contains a noun & verb.: sentence contains subject and verb Ask patient to copy figure of intersecting pentagons exactly. Score if all 10 angles & 2 intersects are included.: all 10 angles present & 2 are intersected Score Score: 28 Activity of Daily Living Bathing - sponge bath, tub bath or shower: receives no assistance (gets in/out by self, if usual bathing means Dressing - getting clothes from closets & drawers, including inner/outer garments & fasteners.: gets clothes & gets completely dressed without help Toileting - going to the 'toilet room' for urine/bowel elimination & cleaning self/arranging clothes: goes to toilet room, cleans self, arranges clothes without help Transfer: moves in & out of bed and chair without help (may use support object) Continence: controls urination/bowel movements completely by self Feeding: feeds self without help Total Score: 0 Information obtained from: patient Using telephone: independent Traveling: independent Shopping: independent Preparing meals: independent Housework: independent Taking medicine: independent Managing money: independent PHQ-9 Over the last 2 weeks, how often have you been bothered by any of the following problems? 1. Little interest or pleasure in doing things: not at all 2. Feeling down, depressed, or hopeless: not at all 3. Trouble falling or staying asleep, or sleeping too much: not at all 4. Feeling tired or having little energy: several days 5. Poor appetite or overeating: not at all 6. Feeling bad about yourself - or that you are a failure or have let yourself or your family down: not at all 7. Trouble concentrating on things, such as reading the newspaper or watching television: not at all 8. Moving or speaking so slowly that other people could have noticed. Or the opposite - being so fidgety or restless that you have been moving around a lot more than usual: not at all 9. Thoughts that you would be better off or of hurting yourself in some way: not at all Total score: 1 Depression Screening Interpretation: Negative Depression Screening Done: Yes 60511 - PHQ-9 Billing: Yes Source: Developed by Drs. Mulugeta Jacobo, Erika Hutson, Venkata Savage and colleagues, with an educational tony from [employer]. Physical Exam Vital Signs: Last Vital Signs Pulse 76 03/31/25 08:47 BP 132/80 03/31/25 08:47 Pulse Ox 97 03/31/25 08:47 Oxygen Delivery Method Room Air 03/31/25 08:47 BMI result Body Mass Index 31.1 Neuro Other: able to stand from sitting position, neg rhomberg, passed whisper test, able to tandem walk Assessment & Plan Assessment & Plan (1) Screening for colon cancer: Code(s): Z12.11 - Encounter for screening for malignant neoplasm of colon (2) Encounter for annual wellness visit (AWV) in Medicare patient: Code(s): Z00.00 - Encounter for general adult medical examination without abnormal findings (3) Ascending aorta dilatation: Code(s): I77.810 - Thoracic aortic ectasia Plan . Orders: Orders CA echo transesophageal 6 Months I77.810 - Thoracic aortic ectasia Referrals Gastroenterology Referral Z12.11 - Encounter for screening for malignant neoplasm of colon Quality Reporting (2019) Depression/Bipolar (159/160/161/177) PHQ-9: Total score: 1 Coding Level of Care Code Medicare Subsequent (G0439) Diagnoses Screening for colon cancer Z12.11 Encounter for annual wellness visit (AWV) in Medicare patient Z00.00 Ascending aorta dilatation I77.810 CPT Codes Advance Care Planning - Time spent: 1-15 minutes, on File ([id number]) Additional Codes PHQ-9 - 25156 - PHQ-9 Billing: Yes ([id number]) Advance Care Planning Forms completed: Health Care Proxy (form given to pt and explained), MOLST (form given, explained) and Living will (done, according to pt) Time spent: 1-15 minutes, on File Actual minutes spent: 8
--- OUTSIDE RECORDS SUMMARY | 2025-03-31 08:53 | XMS_ITS | Clinical Summary ---
Author Organization [facility] Address [address] [place] [address] Phone Care Team Providers Care Supervisor Screen Printing Name Role Phone Jessica Carrington MD Primary Care Provider Encounters Date Type Department Care Team Description 02/07/2025 Lab Requisition [facility] - Main Lab [address] [place] [address] Reza Owusu PA Testicular hypofunction from Last 3 Months Social History Tobacco Use Types Packs/Day Years Used Date Smoking Tobacco: Never Assessed Sex and Gender Information Value Date Recorded Sex Assigned at Not on file Legal Sex Male 11:33 AM EDT Gender Identity Not on file Sexual Orientation Not on file Plan of Treatment Health Maintenance Due Date Last Done Comments DTaP,Tdap,and Td Vaccines (1 - Tdap) 1967 Pneumococcal Vaccine: 50+ Ye ars (1 of 1 - PCV) 1998 Zoster Vaccines (1 of 2) 1998 RSV Immunization Adult Patie nts (1 - 1-dose 75+ series) 2023 COVID-19 Vaccine ( - 2023-2 5 season) 2024 Cholesterol Screening (Lipid Panel) 02/08/2025 Depression Screening 02/08/2025 Falls Risk Assessment 02/08/2025 Hepatitis C Screening 02/08/2025 Medicare Annual Wellness Visit 02/08/2025 Social Influencers of Health Screening 02/08/2025 Influenza Vaccine (#1) 2025 HIB Vaccines Aged Out No longer eligi ble based on patient's age to complete this topic HPV Vaccines Aged Out No longer eligi ble based on patient's age to complete this topic Hepatitis A Vaccines Aged Out No long er eligible based on patient's age to complete this topic Hepatitis B Vaccines Aged Out No long er eligible based on patient's age to complete this topic IPV Vaccines Aged Out No longer eligi ble based on patient's age to complete this topic MMR Vaccines Aged Out No longer eligi ble based on patient's age to complete this topic Meningococcal ACWY Vaccine Aged Out N o longer eligible based on patient's age to complete this topic Meningococcal B Vaccine Aged Out No l onger eligible based on patient's age to complete this topic RSV Immunization Patients Un moise 20 months Aged Out No longer eligible b ased on patient's age to complete this topic Varicella Vaccines Aged Out No longer eligible based on patient's age to complete this topic Procedures Procedure Name Priority Date/Time Associated Diagnosis Comments CBC WITH AUTO DIFFERENTIAL Routine 02/07/2025 9:42 AM EDT Testicular hypofunction CBC AND DIFFERENTIAL Routine 02/07/2025 9:42 AM EDT Testicular hypofunction from Last 3 Months Results * CBC auto differential (02/07/2025 9:42 AM EDT) WBC 5.7 4.8 - 10.8 K/mcL LAB HEMETOLOGY METHOD 02/07/2025 11:51 AM [facility] RBC 5.30 4.50 - 5.50 M/mcL LAB HEMETOLOGY METHOD 02/07/2025 11:51 AM [facility] Hemoglobin 15.3 13.5 - 17.5 g/dL LAB HEMETOLOGY METHOD 02/07/2025 11:51 AM [facility] Hematocrit 46.6 42.0 - 54.0 % LAB HEMETOLOGY METHOD 02/07/2025 11:51 AM [facility] MCV 87.4 79.0 - 98.0 FL LAB HEMETOLOGY METHOD 02/07/2025 11:51 AM [facility] MCH 28.7 27.0 - 32.0 pcg LAB HEMETOLOGY METHOD 02/07/2025 11:51 AM [facility] MCHC 32.8 32.0 - 37.0 g/dL LAB HEMETOLOGY METHOD 02/07/2025 11:51 AM [facility] RDW 13.3 11.0 - 15.0 % LAB HEMETOLOGY METHOD 02/07/2025 11:51 AM [facility] Platelets 177 130 - 400 K/mcL LAB HEMETOLOGY METHOD 02/07/2025 11:51 AM [facility] MPV 10.7 7.0 - 11.0 FL LAB HEMETOLOGY METHOD 02/07/2025 11:51 AM [facility] NRBC 0.0 <1.0 % LAB HEMETOLOGY METHOD 02/07/2025 11:51 AM [facility] NRBC Absolute 0.00 <0.10 K/mcL LAB HEMETOLOGY METHOD 02/07/2025 11:51 AM [facility] Neutrophils Relative 67.5 % LAB HEMETOLOGY METHOD 02/07/2025 11:51 AM [facility] Lymphocytes Relative 19.8 % LAB HEMETOLOGY METHOD 02/07/2025 11:51 AM [facility] Monocytes Relative 10.8 % LAB HEMETOLOGY METHOD 02/07/2025 11:51 AM [facility] Eosinophils Relative 1.2 % LAB HEMETOLOGY METHOD 02/07/2025 11:51 AM [facility] Basophils Relative 0.5 % LAB HEMETOLOGY METHOD 02/07/2025 11:51 AM [facility] Immature Granulocytes Relative 0.2 % LAB HEMETOLOGY METHOD 02/07/2025 11:51 AM [facility] Neutrophils Absolute 3.81 1.50 - 7.00 K/mcL LAB HEMETOLOGY METHOD 02/07/2025 11:51 AM [facility] Lymphocytes Absolute 1.12 1.00 - 5.00 K/mcL LAB HEMETOLOGY METHOD 02/07/2025 11:51 AM EDT [facility] Monocytes Absolute 0.61 0.20 - 1.00 K/mcL LAB HEMETOLOGY METHOD 02/07/2025 11:51 AM EDT [facility] Eosinophils Absolute 0.07 0.00 - 0.50 K/[facility] LAB HEMETOLOGY METHOD 02/07/2025 11:51 AM EDT [facility] Basophils Absolute 0.03 0.00 - 0.20 K/[facility] LAB HEMETOLOGY METHOD 02/07/2025 11:51 AM EDT [facility] Immature Granulocytes Absolute 0.01 0.00 - 0.03 K/[facility] LAB HEMETOLOGY METHOD 02/07/2025 11:51 AM EDT [facility] Blood Venous blood specimen / Unknown 02/07/2025 9:42 AM EDT 02/07/2025 11:39 AM EDT Reza BYRNE LAB BLOOD ORDERABLES Final Result [facility] ([facility]) [facility] [address] [place] [address], from Last 3 Months Insurance MEDICARE Care Teams Supervisor Screen Printing Relationship Specialty Start Date End Date Jessica Carrington MD PCP - General Internal Medicine 02/07/25
== END 2025-03-31 09:51 | disposition home or self-care (01) ==
LOC: HO.HMCC 08:46
PROVIDERS: PCP Nurse Practitioner Family; Visit Provider Nurse Practitioner Family
DX: Z00.00 Encounter for general adult medical examination without abnormal findings (principal); I77.810 Thoracic aortic ectasia; Z12.11 Encounter for screening for malignant neoplasm of colon

== ENCOUNTER → 2025-03-31 08:45 | Outpatient (BNVA) | payer MEDICARE, SELFPAY | PROVIDERS: PCP Nurse Practitioner Family; Visit Provider Nurse Practitioner Family | DX: Z00.00 Encounter for general adult medical examination without abnormal findings (principal); I77.810 Thoracic aortic ectasia | CPT/HCPCS: 96127 ==